=== PATIENT | male | born 1985 | race Caucasian/White ===

== ENCOUNTER 2016-05-16 12:20 | Emergency (ER) | payer OTHER ==
[2016-05-16] MEDS ORDERED: Adacel Vial IM ONE ×2 (12:54→13:04)
--- NOTE | 2016-05-16 12:59 | ERPHSYRPT ---
- History of Present Illness Time Seen by Provider: 05/16/16 12:47 Source: patient Patient Subjective Stated Complaint: bit by neighbors dog in the right lower leg /ankle Triage Nursing Assessment: pt walked into the ER. skin pink warm and dry. skin i broke on the right lower leg with scant amount of blood with 4 puncture wounds. Physician History: CC: dog bite Hx: 31 y/o patient of [place]. A new dog bit him on the right lower leg. Mostly scratch. It was pit bull. Dog has been quarantined at animal skilled nursing as vaccine unknown. Mild discomfort. Needs animal bite form for the skilled nursing. Unsure last tetanus vaccine. Occurred: just prior to arrival Lower Extremities Pain: leg: right Allergies/Adverse Reactions: azithromycin [From Zithromax Z-Cody] Allergy (Mild, Verified 12/21/14 08:39) Diarrhea metronidazole [From Flagyl] Allergy (Verified 12/21/14 08:39) Metronidazole HCl [From Flagyl] Allergy (Verified 12/21/14 08:39) Home Medications: No Home Meds 1 ea UD 12/21/14 [History] Hx Tetanus, Diphtheria Vaccination/Date Given: (unknown possibly 7 years ago) Hx Influenza Vaccination/Date Given: No Hx Pneumococcal Vaccination/Date Given: No Immunizations Up to Date: Yes - Review of Systems Constitutional: No Symptoms Neurological: No Focal Weakness, No Parasthesia - Past Medical History Pertinent Past Medical History: Yes Neurological History: No Pertinent History ENT History: No Pertinent History Cardiac History: Arrhythmia Respiratory History: Asthma, Pneumonia Endocrine Medical History: No Pertinent History Musculoskeletal History: Other GI Medical History: No Pertinent History History: No Pertinent History Psycho-Social History: No Pertinent History Male Reproductive Disorders: No Pertinent History Other Medical History: HEART "SKIPS A BEAT EVERY ONCE IN A WHILE" - Past Surgical History Past Surgical History: Yes Musculoskeletal: Orthopedic Surgery Other Surgical History: rt FOOT - Social History Smoking Status: Current every day smoker How long have you smoked: 15 Exposure to second hand smoke: Yes Drug Use: none Patient Lives Alone: No - Nursing Vital Signs Nursing Vital Signs: Initial Vital Signs Temperature 98.4 F Temperature Source Oral Pulse Rate 72 Respiratory Rate 18 Blood Pressure [Left Arm] 129/84 Pain Intensity 0 - Physical Exam General Appearance: alert Eyes, Ears, Nose, Throat Exam: moist mucous membranes Neck Exam: supple Cardiovascular/Respiratory Exam: regular rate/rhythm Neuro/Tendon Exam: normal sensation, normal motor functions Mental Status Exam: alert, oriented x 3, cooperative Skin Exam: warm, dry, other (scratches and abrasion right lower anterior leg. Pulses and ROM intact. No sign of deep injury. ) SpO2 Interpretation: normal SpO2: 97 Oxygen Delivery: Room Air - Course Nursing assessment & vital signs reviewed: Yes Ordered Tests: Active Orders 24 hr Category Date Time Status Wound Care STAT Care 05/16/16 12:54 Active - Progress Progress Note: 05/16/16 12:57 Discussed risk of infection and offered xray which he declines. Wound care, rx augmentin, dog bite form. Counseled pt/family regarding: diagnosis, need for follow-up - Departure Time of Disposition: 12:58 Departure Disposition: Home Clinical Impression: Dog bite of right lower leg Qualifiers: Encounter type: initial encounter Qualified Code(s): S81.851A - Open bite, right lower leg, initial encounter; W54.0XXA - Bitten by dog, initial encounter Condition: Stable Critical Care Time: No Referrals: [facility]OSP[facility] [Primary Care Provider] - Instructions: Animal Bites Additional Instructions: LACERATION CARE 1. Do not use peroxide, merthiolate, alcohol, or betadine. 2. Keep wound clean and dry. 3. Change dressing if it becomes wet or soiled. 4. If you must work, wear protective covering. 5. You may return to the emergency department or see your family physician for suture removal. 6. See your family physician or return to the emergency department for any of the following signs or symptoms: A. Redness B. Swelling C. Discolored drainage D. Red streaks E. Elevated temperature F. Other signs of infection Rx augmentin. Tylenol if needed for discomfort. Prescriptions: Amox Tr/Potass Clav. 875 mg [Augmentin 875-125 Tablet] 875 mg PO BID #14 tablet
[2016-05-16 13:41] VITALS: BP 132/88; PULSE 76; O2SAT 98
== END 2016-05-16 13:40 | disposition home or self-care (01) ==
LOC: ED 12:20
DX: S81.851A Open bite, right lower leg, initial encounter (principal); W54.0XXA Bitten by dog, initial encounter
CPT/HCPCS: 90471; 90715; 99283

== ENCOUNTER 2020-12-02 12:24 | Emergency (ER) | payer OTHER ==
[2020-12-02 12:36] VITALS: BP 131/77; O2SAT 96
--- NOTE | 2020-12-02 13:12 | ERPHSYRPT ---
- History of Present Illness Time Seen by Provider: 12/02/20 12:35 Source: patient Exam Limitations: no limitations Patient Subjective Stated Complaint: White coating to inner mouth /tongue since yesterday Triage Nursing Assessment: White, thrush like rash noted to inside of mouth/tongue, onset 12/01/2020. Multiple broken teeth. Pt reports pain in mouth 04/19. Denies difficulty swallowing/breathing. A & OX3, answers all questions apporopriately, ambulated to room 10. VSS. Respirations even and unlabored, heart rate within normal limits. Skin PWD. Pt laying in bed, states he is comfortable, call light within reach. Physician History: 35 years old with multiple broken teeth/caries/periodontal disease who uses lemon candy all the time and sometimes sleeps with candy in noticed some increasing white patches with pain of the buccal mucosa and some around the pharynx area. Does have chronic toothache which is not any worse than usual. No gingival swelling. Timing/Duration: gradual onset, days (3) Severity: moderate ENT Location: mouth, throat Prearrival Treatment: no prearrival treatment Associated Symptoms: sore throat, tooth pain, No difficulty swallowing Allergies/Adverse Reactions: azithromycin [From Zithromax Z-Cody] Allergy (Mild, Verified 12/02/20 12:36) Diarrhea metronidazole [From Flagyl] Allergy (Verified 12/02/20 12:36) Metronidazole HCl [From Flagyl] Allergy (Verified 12/02/20 12:36) Home Medications: No Home Meds [No Home Meds] 1 [facility] UD 12/21/14 [History] Hx Tetanus, Diphtheria Vaccination/Date Given: (unknown possibly 7 years ago) Hx Influenza Vaccination/Date Given: No Hx Pneumococcal Vaccination/Date Given: No Travel Risk - International Travel Have you traveled outside of the country in past 3 weeks: No - Coronavirus Screening Are you exhibiting any of the following symptoms?: No Close contact with a COVID-19 positive Pt in past 14-21 Days: No - Vaccine Status Have you recieved a Covid-19 vaccination: No - Review of Systems Constitutional: No Symptoms Ears, Nose, & Throat: No Symptoms, Mouth Pain, Mouth Swelling, Throat Pain, Throat Swelling Respiratory: No Symptoms Cardiac: No Symptoms Abdominal/Gastrointestinal: No Symptoms Genitourinary Symptoms: No Symptoms Musculoskeletal: No Symptoms Skin: No Symptoms Neurological: No Symptoms Psychological: No Symptoms Endocrine: No Symptoms - Past Medical History Pertinent Past Medical History: No Neurological History: No Pertinent History ENT History: No Pertinent History Cardiac History: Arrhythmia Respiratory History: Asthma, Pneumonia Endocrine Medical History: No Pertinent History Musculoskeletal History: Other GI Medical History: No Pertinent History History: No Pertinent History Psycho-Social History: No Pertinent History Male Reproductive Disorders: No Pertinent History Other Medical History: HEART "SKIPS A BEAT EVERY ONCE IN A WHILE" - Past Surgical History Past Surgical History: Yes Musculoskeletal: Orthopedic Surgery Other Surgical History: foot surgery - unsure which side. no metal in foot. - Social History Smoking Status: Current every day smoker How long have you smoked: 15 Exposure to second hand smoke: No Drug Use: none Patient Lives Alone: Yes - Nursing Vital Signs Nursing Vital Signs: Initial Vital Signs Temperature 97.7 F 12/02/20 12:29 Pulse Rate 110 H 12/02/20 12:29 Respiratory Rate 16 12/02/20 12:29 Blood Pressure 131/77 12/02/20 12:29 O2 Sat by Pulse Oximetry 96 12/02/20 12:29 Pain Scale Pain Intensity 3 - Physical Exam General Appearance: no apparent distress, alert Eye Exam: bilateral eye: normal inspection, PERRL, EOMI Ear Exam: bilateral ear: auricle normal, canal normal, TM normal Nasal Exam: normal inspection Throat Exam: dental tenderness, moist mucus membranes, pharynx swelling, pharynx tenderness, tongue swollen (Multiple white patches on the buccal mucosa, tongue and and pharyngeal/tonsillar pillars. Easily scrappable the bleeding underneath. Mild tender to touch. Multiple dental caries with broken teeth and periodontal disease widespread) Neck Exam: normal inspection, supple, full range of motion Cardiovascular/Respiratory Exam: normal breath sounds, regular rate/rhythm Neurologic Exam: alert, oriented x 3, cooperative Skin Exam: normal color SpO2: 96 O2 Delivery: Room Air - Progress Progress: unchanged Progress Note: 12/02/20 13:12 Has oropharyngeal candidiasis. Moderate disease. We will try fluconazole. Outpatient follow-up with primary care and dental surgery recommended. Counseled pt/family regarding: diagnosis, need for follow-up - Departure Departure Disposition: Home Clinical Impression: Oral pharyngeal candidiasis Condition: Stable Critical Care Time: No Referrals: DOCTOR,NO FAMILY [Primary Care Provider] - DUGLAS MONTGOMERY MD [ACTIVE STAFF] - Follow Up with PCP/3 days GLYNN ESPAÑA DDS [NON-STAFF PHY W/O PRIVILEGES] - (Call Friday for reevaluation) Instructions: Thrush Additional Instructions: Follow-up with primary care and general surgery for reevaluation. Return to ER for worsening swelling/thrush/pain or difficulty swallowing etc. Prescriptions: Fluconazole 100 mg [Diflucan 100 MG] 100 mg PO DAILY 7 Days #8 tablet
[2020-12-02 13:37] VITALS: PULSE 85
== END 2020-12-02 13:30 | disposition home or self-care (01) ==
LOC: ED 12:24
DX: B37.0 Candidal stomatitis (principal)
CPT/HCPCS: 99283

== ENCOUNTER 2021-05-26 07:20 | Emergency (ER) | payer OTHER ==
[2021-05-26 07:33] VITALS: BP 110/77
--- NOTE | 2021-05-26 07:42 | ERPHSYRPT ---
- History of Present Illness Time Seen by Provider: 05/26/21 07:34 Source: patient Exam Limitations: no limitations Patient Subjective Stated Complaint: pt reports dental pain, sore throat and what he believes is oral thrush. pt reports recent visit for similar issue. pt r eports area of pain is the upper left incisor today, reports pain radiates up his face. Triage Nursing Assessment: pt is aox3, pupils perrl, afebrile, resps easy and non labored, radial pulses strong equal, cap refill < 3 seconds, pt skin pink warm dry. pt with extensive dental caries and decay, and broken teeth. pt throat appears reddened. no facial swelling appreciated at this time. Physician History: Patient is a 36-year-old white male who presents with a complaint of what he thinks is a recurrence of thrush. He also complains of dental pain in the left maxillary canine. He does realize that he has severe carious disease which involve most of his teeth. He is unable to obtain dental care. He was treated for thrush approximately 2 months ago. He denies any fever chills or sweats. Timing/Duration: gradual onset Severity: severe ENT Location: mouth (Multiple carious teeth swelling of the gums near the left maxillary canine typical appearing monilial lesions in the throat.), throat, dental Prearrival Treatment: no prearrival treatment Modifying Factors: Improves With: nothing Associated Symptoms: ear pain (L), facial pain/swelling, jaw pain, sore throat, tooth pain, difficulty swallowing Allergies/Adverse Reactions: azithromycin [From Zithromax Z-Cody] Allergy (Mild, Verified 05/26/21 07:33) Diarrhea metronidazole [From Flagyl] Allergy (Verified 05/26/21 07:33) Metronidazole HCl [From Flagyl] Allergy (Verified 05/26/21 07:33) Home Medications: No Home Meds [No Home Meds] 1 valente TRUDI 12/21/14 [History] Hx Tetanus, Diphtheria Vaccination/Date Given: Yes Hx Influenza Vaccination/Date Given: No Hx Pneumococcal Vaccination/Date Given: No Immunizations Up to Date: Yes Travel Risk - International Travel Have you traveled outside of the country in past 3 weeks: No - Coronavirus Screening Are you exhibiting any of the following symptoms?: No Close contact with a COVID-19 positive Pt in past 14-21 Days: No - Vaccine Status Have you recieved a Covid-19 vaccination: No - Review of Systems Constitutional: No Fever, No Chills Eyes: No Symptoms Ears, Nose, & Throat: Mouth Pain, Loose Teeth, Throat Pain Respiratory: No Cough, No Dyspnea Cardiac: No Chest Pain, No Edema, No Syncope Abdominal/Gastrointestinal: No Abdominal Pain, No Nausea, No Vomiting, No Diarrhea Genitourinary Symptoms: No Dysuria Musculoskeletal: No Back Pain, No Neck Pain Skin: No Rash Neurological: No Dizziness, No Focal Weakness, No Sensory Changes Psychological: No Symptoms Endocrine: No Symptoms All Other Systems: Reviewed and Negative - Past Medical History Pertinent Past Medical History: No Neurological History: No Pertinent History ENT History: No Pertinent History Cardiac History: Arrhythmia Respiratory History: Asthma, Pneumonia Endocrine Medical History: No Pertinent History Musculoskeletal History: Other GI Medical History: No Pertinent History History: No Pertinent History Psycho-Social History: No Pertinent History Male Reproductive Disorders: No Pertinent History Other Medical History: HEART "SKIPS A BEAT EVERY ONCE IN A WHILE" - Past Surgical History Past Surgical History: Yes Musculoskeletal: Orthopedic Surgery Other Surgical History: foot surgery - unsure which side. no metal in foot. - Social History Smoking Status: Current every day smoker How long have you smoked: 1 Exposure to second hand smoke: No Drug Use: marijuana Patient Lives Alone: No - Nursing Vital Signs Nursing Vital Signs: Initial Vital Signs Temperature 98.6 F 05/26/21 07:23 Pulse Rate 89 05/26/21 07:23 Respiratory Rate 20 05/26/21 07:23 Blood Pressure 110/77 05/26/21 07:23 O2 Sat by Pulse Oximetry 96 05/26/21 07:23 Pain Scale Pain Intensity 6 - Physical Exam General Appearance: no apparent distress, alert Eye Exam: bilateral eye: PERRL, EOMI Ear Exam: bilateral ear: auricle normal, canal normal, TM normal Nasal Exam: normal inspection Throat Exam: dental tenderness, maxillary swelling, moist mucus membranes, tonsillar exudate, uvula swelling Neck Exam: supple Cardiovascular/Respiratory Exam: normal breath sounds, regular rate/rhythm Abdominal Exam: non-tender, soft Neurologic Exam: alert, oriented x 3, sensation nml, No motor deficits Skin Exam: normal color, warm, dry SpO2 Interpretation: normal SpO2: 96 O2 Delivery: Room Air - Course Nursing assessment & vital signs reviewed: Yes - Progress Progress: unchanged - Departure Departure Disposition: Home Clinical Impression: Thrush, Dental abscess Condition: Stable Critical Care Time: No Referrals: DOCTOR,NO FAMILY [Primary Care Provider] - Follow up/PCP as directed Instructions: Sore Throat, Adult (DC), Thrush (DC) Prescriptions: clindamycin HCL [Cleocin HCl] 300 mg PO TID 7 Days #21 cap Fluconazole [Diflucan ] 150 mg PO DAILY 5 Days #5 tablet
[2021-05-26 07:44] VITALS: PULSE 76; O2SAT 98
== END 2021-05-26 07:49 | disposition home or self-care (01) ==
LOC: ED 07:20
DX: B37.0 Candidal stomatitis (principal); K04.7 Periapical abscess without sinus; H92.02 Otalgia, left ear; R68.84 Jaw pain; J02.9 Acute pharyngitis, unspecified; R13.10 Dysphagia, unspecified; Z72.0 Tobacco use
CPT/HCPCS: 99283

== ENCOUNTER 2021-07-10 00:29 | Emergency (ER) | payer OTHER ==
[2021-07-10] MEDS ORDERED: Augmentin 875-125 Tablet PO ONE (00:57)
[2021-07-10] MEDS ORDERED: TORAdol 30 mg Injection IM ONE (00:57)
[2021-07-10] MEDS ORDERED: Augmentin 875-125 Tablet ONE (01:00)
[2021-07-10] MEDS ORDERED: TORAdol 30 mg Injection ONE (01:00)
--- NOTE | 2021-07-10 01:02 | ERPHSYRPT ---
- History of Present Illness Time Seen by Provider: 07/10/21 00:47 Source: patient Exam Limitations: no limitations Patient Subjective Stated Complaint: nasal congestion, sore throat, ear pain Triage Nursing Assessment: pt c/o nasal congestion, sore throat and bilat ear pain x5 days. Rt ear pink, throat pink, lungs clear throughout. Pt states, "I have bad teeth too". Physician History: 36-year-old male presented to the ER with 2 weeks history of sinus congestion with progressive worsening and now involving left ear and throat. Also having wet to dry cough without wheezing or shortness of breath. Timing/Duration: week(s) (2), gradual onset, worse Cough Quality/Degree: moderate, dry cough, productive cough Modifying Factors: Worsens With: coughing Associated Symptoms: cough, earache, facial pain, headache, nasal congestion, nasal drainage, sore throat Allergies/Adverse Reactions: azithromycin [From Zithromax Z-Cody] Allergy (Mild, Verified 07/10/21 00:44) Diarrhea metronidazole [From Flagyl] Allergy (Verified 07/10/21 00:44) Metronidazole HCl [From Flagyl] Allergy (Verified 07/10/21 00:44) Hx Tetanus, Diphtheria Vaccination/Date Given: No Hx Influenza Vaccination/Date Given: No Hx Pneumococcal Vaccination/Date Given: No Immunizations Up to Date: No Travel Risk - International Travel Have you traveled outside of the country in past 3 weeks: No - Coronavirus Screening Are you exhibiting any of the following symptoms?: No Close contact with a COVID-19 positive Pt in past 14-21 Days: No - Vaccine Status Have you recieved a Covid-19 vaccination: No - Review of Systems Constitutional: No Symptoms Eyes: No Symptoms Ears, Nose, & Throat: Ear Pain, Sinus Drainage, Throat Swelling Respiratory: Cough Cardiac: No Symptoms Abdominal/Gastrointestinal: No Symptoms Musculoskeletal: No Symptoms Skin: No Symptoms Neurological: No Symptoms Endocrine: No Symptoms Hematologic/Lymphatic: No Symptoms Immunological/Allergic: No Symptoms - Past Medical History Pertinent Past Medical History: Yes Neurological History: No Pertinent History ENT History: No Pertinent History Cardiac History: Arrhythmia Respiratory History: Asthma, Bronchitis, Pneumonia Endocrine Medical History: No Pertinent History Musculoskeletal History: No Pertinent History GI Medical History: No Pertinent History History: No Pertinent History Psycho-Social History: No Pertinent History Male Reproductive Disorders: No Pertinent History Other Medical History: HEART "SKIPS A BEAT EVERY ONCE IN A WHILE" - Past Surgical History Past Surgical History: Yes Musculoskeletal: Orthopedic Surgery Other Surgical History: foot surgery - unsure which side. no metal in foot. - Social History Smoking Status: Current every day smoker How long have you smoked: 20 yrs Exposure to second hand smoke: Yes Drug Use: marijuana Patient Lives Alone: Yes - Nursing Vital Signs Nursing Vital Signs: Initial Vital Signs Temperature 97.5 F 07/10/21 00:37 Pulse Rate 76 07/10/21 00:37 Respiratory Rate 18 07/10/21 00:37 Blood Pressure 125/81 07/10/21 00:37 O2 Sat by Pulse Oximetry 98 07/10/21 00:37 Pain Scale Pain Intensity 4 - Physical Exam General Appearance: no apparent distress, alert Eye Exam: PERRL/EOMI Ears, Nose, Throat Exam: moist mucous membranes, pharyngeal erythema Neck Exam: normal inspection, non-tender, supple, full range of motion Respiratory Exam: normal breath sounds, lungs clear Cardiovascular Exam: regular rate/rhythm, normal heart sounds Back Exam: normal inspection, normal range of motion Extremity Exam: normal inspection Neurologic Exam: alert, oriented x 3, cooperative, 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 Started on Augmentin. Outpatient follow-up recommended. Blood Culture(s) Obtained: No Antibiotics given: Yes Counseled pt/family regarding: diagnosis, need for follow-up - Departure Departure Disposition: Home Clinical Impression: Acute bacterial sinusitis Condition: Stable Critical Care Time: No Referrals: DOCTOR,NO FAMILY [Primary Care Provider] - Follow up/PCP as directed SEFERINO COATS DO [ACTIVE STAFF] - Follow Up with PCP/3 days Instructions: Sinusitis, Adult (DC) Additional Instructions: Take Tylenol/ibuprofen as needed. Drink plenty of fluids. Do not smoke. Follow-up with primary care for reevaluation. Return to ER for any worsening. Prescriptions: Amox Tr/Potass Clav. 875 mg [Augmentin 875-125 Tablet] 875 mg PO BID #14 tablet
[2021-07-10 01:39] VITALS: BP 119/76; PULSE 73; O2SAT 97
== END 2021-07-10 01:35 | disposition home or self-care (01) ==
LOC: ED 00:29
DX: J01.00 Acute maxillary sinusitis, unspecified (principal); R09.81 Nasal congestion; H92.02 Otalgia, left ear; J02.9 Acute pharyngitis, unspecified; R05.9 Cough, unspecified; R51.9 Headache, unspecified; Z72.0 Tobacco use
CPT/HCPCS: 96372; 99283; J1885; A9270-GY

== ENCOUNTER 2021-08-09 03:23 | Emergency (ER) | payer OTHER ==
--- NOTE | 2021-08-09 03:31 | ERPHSYRPT ---
- History of Present Illness Time Seen by Provider: 08/09/21 03:28 Source: patient Exam Limitations: no limitations Physician History: This a 36-year-old white male patient who presents to the emergency department with tooth ache. Left upper and lower worse than the right side. Patient has generalized poor dentition patient has a history of asthma, bronchitis. Patient's primary care physician is Dr. Trujillo. Patient is a current daily smoker of cigarettes. Patient is waiting for his insurance to be cleared to undergo the pulling of all his teeth. He has been using Tylenol and ibuprofen without any benefit. Severity: mild (To moderate) Prearrival Treatment: over the counter meds Associated Symptoms: tooth pain Allergies/Adverse Reactions: azithromycin [From Zithromax Z-Cody] Allergy (Mild, Verified 07/10/21 00:44) Diarrhea metronidazole [From Flagyl] Allergy (Verified 07/10/21 00:44) Metronidazole HCl [From Flagyl] Allergy (Verified 07/10/21 00:44) Hx Tetanus, Diphtheria Vaccination/Date Given: No Hx Influenza Vaccination/Date Given: No Hx Pneumococcal Vaccination/Date Given: No Travel Risk - International Travel Have you traveled outside of the country in past 3 weeks: No - Coronavirus Screening Are you exhibiting any of the following symptoms?: No Close contact with a COVID-19 positive Pt in past 14-21 Days: No - Vaccine Status Have you recieved a Covid-19 vaccination: No - Review of Systems Constitutional: No Symptoms Eyes: No Symptoms Ears, Nose, & Throat: Other Respiratory: No Symptoms (Toothache) Cardiac: No Symptoms Abdominal/Gastrointestinal: No Symptoms Genitourinary Symptoms: No Symptoms Musculoskeletal: No Symptoms Skin: No Symptoms Neurological: No Symptoms Psychological: No Symptoms Endocrine: No Symptoms Hematologic/Lymphatic: No Symptoms Immunological/Allergic: No Symptoms All Other Systems: Reviewed and Negative - Past Medical History Pertinent Past Medical History: Yes Neurological History: No Pertinent History ENT History: No Pertinent History Cardiac History: Arrhythmia Respiratory History: Asthma, Bronchitis, Pneumonia Endocrine Medical History: No Pertinent History Musculoskeletal History: No Pertinent History GI Medical History: No Pertinent History History: No Pertinent History Psycho-Social History: No Pertinent History Male Reproductive Disorders: No Pertinent History Other Medical History: HEART "SKIPS A BEAT EVERY ONCE IN A WHILE" - Past Surgical History Past Surgical History: Yes Musculoskeletal: Orthopedic Surgery Other Surgical History: foot surgery - unsure which side. no metal in foot. - Social History Smoking Status: Current every day smoker How long have you smoked: 20 yrs Exposure to second hand smoke: Yes Drug Use: marijuana Patient Lives Alone: Yes - Physical Exam General Appearance: no apparent distress, alert, anxiety Eye Exam: bilateral eye: normal inspection, PERRL, EOMI Ear Exam: bilateral ear: auricle normal Nasal Exam: normal inspection Throat Exam: dental tenderness (Generalized poor dentition with multiple fractured teeth and dental caries) Neck Exam: normal inspection, non-tender, supple, full range of motion, trachea midline Cardiovascular/Respiratory Exam: chest non-tender, no respiratory distress Abdominal Exam: non-tender Neurologic Exam: alert, oriented x 3, cooperative, block 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 Follow-up with a dentist for definitive care. Prescriptions: Amoxicillin 500 mg Cap [Amoxil 500 mg] 500 mg PO TID #30 cap Clindamycin HCl 150 mg [Cleocin 150 mg Capsule] 2 cap PO QID #40 cap
[2021-08-09] MEDS ORDERED: NORCO 5/325 MG PO ONE (03:37)
[2021-08-09] MEDS ORDERED: AMOXIL 500 MG PO ONE (03:38)
[2021-08-09] MEDS ORDERED: CLEOCIN 150 MG CAPSULE PO ONE (03:38)
[2021-08-09] MEDS ORDERED: CLEOCIN 150 MG CAPSULE ONE (03:42)
[2021-08-09] MEDS ORDERED: NORCO 5/325 MG ONE (03:42)
[2021-08-09 03:43] VITALS: BP 140/106; PULSE 75; O2SAT 99
[2021-08-09] MEDS ORDERED: AMOXIL 500 MG ONE (03:43)
== END 2021-08-09 03:56 | disposition home or self-care (01) ==
LOC: ED 03:23
DX: K02.9 Dental caries, unspecified (principal); Z72.0 Tobacco use; Z28.310 Unvaccinated for COVID-19
CPT/HCPCS: 99282; A9270-GY

== ENCOUNTER 2021-08-30 04:48 | Emergency (ER) | payer OTHER ==
[2021-08-30 05:02] VITALS: BP 139/82; PULSE 75; O2SAT 98
[2021-08-30] MEDS ORDERED: PERCOCET TABLET 5/325MG PO STA (05:09)
[2021-08-30] MEDS ORDERED: PERCOCET TABLET 5/325MG ONE (05:12)
--- NOTE | 2021-08-30 05:15 | ERPHSYRPT ---
- History of Present Illness Time Seen by Provider: 08/30/21 05:05 Source: patient Exam Limitations: no limitations Patient Subjective Stated Complaint: pt states he has bad teeth and is having pain in his rt upper jaw. started having problems approx 3 mos ago Triage Nursing Assessment: pt alert and oriented, answers questions approp. pt ambulatory with steady gait noted. respirations nonlabored. skin warm and dry. poor dentition noted. Physician History: This a 36-year-old white male patient who has chronic poor dentition and chronic recurring dental pain and was seen by his dentist a few days ago because of dent al pain and dental caries. They placed him on amoxicillin and gave him chlorhexidine solution for oral rinse. He was told to take Tylenol and ibuprofen. That does not helping his pain as much as he would like. Patient drove himself into the emergency room this morning. The next appointment to see a dentist is September 10, 2021. Severity: moderate ENT Location: dental Prearrival Treatment: over the counter meds, prescription meds Associated Symptoms: tooth pain (Right upper molars) Allergies/Adverse Reactions: azithromycin [From Zithromax Z-Cody] Allergy (Mild, Verified 08/09/21 03:43) Diarrhea metronidazole [From Flagyl] Allergy (Unknown, Verified 08/30/21 05:02) Metronidazole HCl [From Flagyl] Allergy (Unknown, Verified 08/30/21 05:02) Home Medications: Acetaminophen 325 mg [Tylenol 325 mg] 650 mg PO Q6H PRN PRN 08/30/21 [History] Chlorhexidine Gluconate [HIBICLENS 4% Scrub] 15 ml TOP BID 08/30/21 [History] Ibuprofen 200 mg [Motrin 200 mg] 800 mg PO Q6H PRN PRN 08/30/21 [History] Hx Tetanus, Diphtheria Vaccination/Date Given: No Hx Influenza Vaccination/Date Given: No Hx Pneumococcal Vaccination/Date Given: No Immunizations Up to Date: No Travel Risk - International Travel Have you traveled outside of the country in past 3 weeks: No - Coronavirus Screening Are you exhibiting any of the following symptoms?: No Close contact with a COVID-19 positive Pt in past 14-21 Days: No - Vaccine Status Have you recieved a Covid-19 vaccination: No - Review of Systems Constitutional: No Symptoms Eyes: No Symptoms Ears, Nose, & Throat: Other (Dental pain) Respiratory: No Symptoms Cardiac: No Symptoms Abdominal/Gastrointestinal: No Symptoms Genitourinary Symptoms: No Symptoms Musculoskeletal: No Symptoms Skin: No Symptoms Neurological: No Symptoms Psychological: No Symptoms Endocrine: No Symptoms Hematologic/Lymphatic: No Symptoms Immunological/Allergic: No Symptoms All Other Systems: Reviewed and Negative - Past Medical History Pertinent Past Medical History: Yes Neurological History: No Pertinent History ENT History: No Pertinent History Cardiac History: Arrhythmia Respiratory History: Asthma, Bronchitis, Pneumonia Endocrine Medical History: No Pertinent History Musculoskeletal History: No Pertinent History GI Medical History: No Pertinent History History: No Pertinent History Psycho-Social History: No Pertinent History Male Reproductive Disorders: No Pertinent History Other Medical History: HEART "SKIPS A BEAT EVERY ONCE IN A WHILE" - Past Surgical History Past Surgical History: Yes Musculoskeletal: Orthopedic Surgery Other Surgical History: foot surgery - unsure which side. no metal in foot. - Social History Smoking Status: Current every day smoker How long have you smoked: 20 yrs Exposure to second hand smoke: Yes Drug Use: marijuana Patient Lives Alone: Yes - Nursing Vital Signs Nursing Vital Signs: Initial Vital Signs Temperature 97.8 F 08/30/21 04:53 Pulse Rate 75 08/30/21 04:53 Respiratory Rate 16 08/30/21 04:53 Blood Pressure 139/82 08/30/21 04:53 O2 Sat by Pulse Oximetry 98 08/30/21 04:53 Pain Scale Pain Intensity 10 - Physical Exam General Appearance: no apparent distress, alert, anxiety Eye Exam: bilateral eye: normal inspection, PERRL, EOMI Ear Exam: bilateral ear: auricle normal Nasal Exam: normal inspection Throat Exam: dental tenderness (Generalized dental caries. Point of maximal tenderness is right upper molars) Neck Exam: normal inspection, non-tender, supple, full range of motion, trachea midline Cardiovascular/Respiratory Exam: chest non-tender, no respiratory distress Abdominal Exam: non-tender Neurologic Exam: alert, oriented x 3, cooperative, land examiner II-XII nml as tested, normal mood/affect, nml cerebellar function, nml station & gait, sensation nml Skin Exam: normal color, warm, dry SpO2 Interpretation: normal SpO2: 98 O2 Delivery: Room Air - Course Nursing assessment & vital signs reviewed: Yes Ordered Tests: Medication Summary Generic Name Dose Route Start Last Admin Trade Name Jeferson PRN Reason Stop Dose Admin Oxycodone/Acetaminophen 2 tab 08/30/21 05:09 Oxycodone Hcl/Apap 5 Mg/325 Mg Tablet PO 08/30/21 05:10 SENT HOME W/ PATIENT STA - Progress Progress: unchanged Counseled pt/family regarding: diagnosis, need for follow-up - Departure Departure Disposition: Home Clinical Impression: Pain due to dental caries Condition: Stable Critical Care Time: No Referrals: KENIA ROBERTO [Primary Care Provider] - Follow up/PCP as directed Additional Instructions: Continue antibiotics as prescribed. Follow-up with your dentist and primary care provider today for further evaluation and management of your pain as an outpatient.
== END 2021-08-30 05:25 | disposition home or self-care (01) ==
LOC: ED 04:48
DX: K08.89 Other specified disorders of teeth and supporting structures (principal); K02.9 Dental caries, unspecified; Z72.0 Tobacco use; Z79.899 Other long term (current) drug therapy; Z28.310 Unvaccinated for COVID-19
CPT/HCPCS: 99281; A9270-GY

== ENCOUNTER 2021-09-04 09:26 | Emergency (ER) | payer OTHER ==
[2021-09-04] MEDS ORDERED: BABY ASPIRIN 81 MG CHEW PO ONE (09:38)
--- NOTE | 2021-09-04 09:47 | ERPHSYRPT ---
- History of Present Illness Time Seen by Provider: 09/04/21 09:30 Historian: patient Exam Limitations: no limitations Patient Subjective Stated Complaint: C/O chest pain to left side of chest that started sometime last night when patient was at rest. No SOB. No N/V, dizziness. Denies pain radiation anywhere. Triage Nursing Assessment: Ambulated back to ED without difficulties. No SOB noted. Skin C/D/I. SAENZ WNL. No cough noted but patient states that he has a cough related to years of smoking that is not new. Physician History: Patient is a 36-year-old male with a [id number] smoking presents to our ED with complaints of chest pain. Patient has been experiencing intermittent left- sided chest pain for several months. Patient's current pain started last night while patient was resting. Pain started approximately 10:30 PM. Pain has been ongoing. Patient states that he experiences a slight radiation to his left shoulder. No associated nausea vomiting or diaphoresis. No trauma. No fever. Symptoms are mild to moderate in intensity. No specific worsening improving factors. Patient has not had a cardiac work-up for this pain as stated he has been experiencing this pain intermittently for the past several months. Patient states otherwise healthy. He voices no other complaints or concerns at this time. Timing/Duration: yesterday Activities at Onset: none Quality: aching Location: other (Left chest) Chest Pain Radiation: arm Severity of Pain-Max: moderate Severity of Pain-Current: mild Modifying Factors: Improves With: nothing Associated Symptoms: denies symptoms, No nausea, No vomiting, No palpitations, No abdominal pain, No shortness of breath, No hurts to breathe, No diaphoresis, No fatigue, No weakness, No syncope, No headache, No dizziness Prior Chest Pain/Cardiac Workup: no prior chest pain Nitro Today/Relief: no nitro taken today Aspirin Treatment Today: no aspirin today Allergies/Adverse Reactions: azithromycin [From Zithromax Z-Cody] Allergy (Mild, Verified 09/04/21 09:28) Diarrhea metronidazole [From Flagyl] Allergy (Unknown, Verified 09/04/21 09:28) Metronidazole HCl [From Flagyl] Allergy (Unknown, Verified 09/04/21 09:28) Home Medications: Acetaminophen 325 mg [Tylenol 325 mg] 650 mg PO Q6H PRN PRN 08/30/21 [History] Ibuprofen 200 mg [Motrin 200 mg] 800 mg PO Q6H PRN PRN 08/30/21 [History] Hx Tetanus, Diphtheria Vaccination/Date Given: Yes Hx Influenza Vaccination/Date Given: No Hx Pneumococcal Vaccination/Date Given: No Immunizations Up to Date: Yes Travel Risk - International Travel Have you traveled outside of the country in past 3 weeks: No - Coronavirus Screening Are you exhibiting any of the following symptoms?: No Close contact with a COVID-19 positive Pt in past 14-21 Days: No - Vaccine Status Have you recieved a Covid-19 vaccination: No - Review of Systems Constitutional: No Symptoms, No Fever, No Chills Eyes: No Symptoms Ears, Nose, & Throat: No Symptoms Respiratory: No Symptoms, No Cough, No Dyspnea Cardiac: No Symptoms, No Chest Pain, No Edema, No Syncope Abdominal/Gastrointestinal: No Symptoms, No Abdominal Pain, No Nausea, No Vo miting, No Diarrhea Genitourinary Symptoms: No Symptoms, No Dysuria Musculoskeletal: No Symptoms, No Back Pain, No Neck Pain Skin: No Symptoms, No Rash Neurological: No Symptoms, No Dizziness, No Focal Weakness, No Sensory Changes Psychological: No Symptoms Endocrine: No Symptoms Hematologic/Lymphatic: No Symptoms Immunological/Allergic: No Symptoms All Other Systems: Reviewed and Negative - Past Medical History Pertinent Past Medical History: Yes Neurological History: No Pertinent History ENT History: No Pertinent History Cardiac History: Arrhythmia Respiratory History: Asthma, Bronchitis, Pneumonia Endocrine Medical History: No Pertinent History Musculoskeletal History: No Pertinent History GI Medical History: No Pertinent History History: No Pertinent History Psycho-Social History: No Pertinent History Male Reproductive Disorders: No Pertinent History Other Medical History: HEART "SKIPS A BEAT EVERY ONCE IN A WHILE" - Past Surgical History Past Surgical History: Yes Musculoskeletal: Orthopedic Surgery Other Surgical History: foot surgery - Social History Smoking Status: Current every day smoker How long have you smoked: 20 yrs Exposure to second hand smoke: Yes Drug Use: marijuana Patient Lives Alone: Yes - Nursing Vital Signs Nursing Vital Signs: Initial Vital Signs Temperature 98.2 F 09/04/21 09:28 Pulse Rate 84 09/04/21 09:28 Respiratory Rate 20 09/04/21 09:28 Blood Pressure 136/87 09/04/21 09:28 O2 Sat by Pulse Oximetry 99 09/04/21 09:28 Pain Scale Pain Intensity 5 - Physical Exam General Appearance: no apparent distress, alert Eye Exam: PERRL/EOMI, eyes nml inspection Ears, Nose, Throat Exam: normal ENT inspection, TMs normal, pharynx normal, moist mucous membranes Neck Exam: normal inspection, non-tender, supple, full range of motion Respiratory Exam: normal breath sounds, lungs clear, airway intact, No chest ten derness, No respiratory distress Cardiovascular Exam: regular rate/rhythm, normal heart sounds, normal peripheral pulses Gastrointestinal/Abdomen Exam: soft, normal bowel sounds, No tenderness, No mass Back Exam: normal inspection, normal range of motion, No CVA tenderness, No vertebral tenderness Extremity Exam: normal inspection, normal range of motion Neurologic Exam: alert, oriented x 3, cooperative, campus administrator II-XII nml as tested, normal mood/affect, sensation nml, No motor deficits Skin Exam: normal color, warm, dry Lymphatic Exam: No adenopathy SpO2 Interpretation: normal SpO2: 99 O2 Delivery: Room Air - Course Nursing assessment & vital signs reviewed: Yes EKG Interpreted by Me: RATE (74), Sinus Rhythm, NORMAL AXIS, NORMAL INTERVALS - Radiology Exams Chest X-ray Interpretation: Teleradiologist Report (No acute cardiopulmonary disease) Ordered Tests: Active Orders 24 hr Category Date Time Status Access Services Librarian STAT Care 09/04/21 09:39 Active Clean Catch Urine Specimen STAT Care 09/04/21 09:38 Active EKG-ER Only STAT Care 09/04/21 09:38 Active IV Insertion STAT Care 09/04/21 09:38 Active Pulse Oximetry (ED) STAT Care 09/04/21 09:38 Active CHEST 1 VIEW (PORTABLE) Stat Exams 09/04/21 09:39 Completed CBC W DIFF Stat Lab 09/04/21 09:49 Completed CMP Stat Lab 09/04/21 09:49 Completed D-DIMER QUANTITATIVE Stat Lab 09/04/21 09:49 Completed NT PRO BNP Stat Lab 09/04/21 09:49 Completed TROPONIN Q3H Lab 09/04/21 09:49 Completed TROPONIN Q3H Lab 09/04/21 11:02 Completed TROPONIN Q3H Lab 09/04/21 15:45 Ordered TROPONIN Q3H Lab 09/04/21 18:45 Ordered TROPONIN Q3H Lab 09/04/21 21:45 Ordered UA W/RFX CULTURE Stat Lab 09/04/21 10:21 Completed Urine Triage Profile Stat Lab 09/04/21 10:21 Completed Medication Summary Discontinued Medications Generic Name Dose Route Start Last Admin Trade Name Jeferson PRN Reason Stop Dose Admin Aspirin 324 mg 09/04/21 09:38 09/04/21 09:51 Aspirin 81 Mg Tab.Chew PO 09/04/21 09:39 324 mg STAT ONE Administration Lab/Rad Data: Laboratory Result Diagrams 09/04/21 09:49 09/04/21 09:49 Laboratory Results 09/04/21 09/04/21 09/04/21 Range/Units 11:02 10:21 10:21 WBC (4.0-10.5) x10^3/uL RBC (4.1-5.6) x10^6/uL Hgb (12.5-18.0) g/dL Hct (42-50) % MCV (78-100) fL MCH (26-32) pg MCHC (32-36) g/dL RDW (11.5-14.0) % Plt Count (150-450) x10^3/uL MPV (7.5-11.0) fL Gran % (36.0-66.0) % Immature Gran % (Auto) (0.00-0.4) % Nucleat RBC Rel Count (0.00-0.1) % Eos # (Auto) (0-0.5) x10^3/uL Immature Gran # (Auto) (0.00-0.03) x10^3u/L Absolute Lymphs (auto) (1.0-4.6) x10^3/uL Absolute Monos (auto) (0.0-1.3) x10^3/uL Absolute Nucleated RBC (0.00-0.01) x10^3u/L Lymphocytes % (24.0-44.0) % Monocytes % (0.0-12.0) % Eosinophils % (0.00-5.0) % Basophils % (0.0-0.4) % Absolute Granulocytes (1.4-6.9) x10^3/uL Basophils # (0-0.4) x10^3/uL D-Dimer (0.0-0.50) mg/L Sodium (137-145) mmol/L Potassium (3.5-5.1) mmol/L Chloride (98-107) mmol/L Carbon Dioxide (22-30) mmol/L Anion Gap (5-15) MEQ/L BUN (9-20) mg/dL Creatinine (0.66-1.25) mg/dL Estimated GFR ML/MIN Glucose (74-106) mg/dL Calcium (8.4-10.2) mg/dL Total Bilirubin (0.2-1.3) mg/dL AST (17-59) U/L ALT (0-50) U/L Alkaline Phosphatase (38-126) U/L Troponin I < 0.012 (0.000-0.034) ng/mL NT-Pro-B Natriuret Pep (0-450) pg/mL Serum Total Protein (6.3-8.2) g/dL Albumin (3.5-5.0) g/dL Urinalys Dipstick Clnc MAIN LAB Urine Color YELLOW (YELLOW) Urine Appearance CLEAR (CLEAR) Urine pH 6.0 (5-6) Ur Specific Hamill 1.025 (1.005-1.025) POC Urine Protein Conf NEGATIVE (Negative) Urine Ketones NEGATIVE (NEGATIVE) Urine Nitrite NEGATIVE (NEGATIVE) Urine Bilirubin NEGATIVE (NEGATIVE) Urine Urobilinogen 0.2 (0-1) mg/dL Urine Leukocytes NEGATIVE (NEGATIVE) Urine WBC (Auto) 0-2 (0-5) /HPF Urine RBC (Auto) NONE (0-2) /HPF U Epithel Cells (Auto) OCCASIONAL (FEW) /HPF Urine Bacteria (Auto) NONE SEEN (NEGATIVE) /HPF Urine RBC NEGATIVE (0-5) Niles/ul Calcium Oxalate Crystal 11-25 (NEGATIVE) /HPF Urine Mucus (Auto) SLIGHT (NEGATIVE) /HPF Ur Culture Indicated? NO Urine Glucose NEGATIVE (NEGATIVE) mg/dL Urine Opiates Level POSITIVE (NEGATIVE) Ur Methadone NEGATIVE (NEGATIVE) Urine Barbiturates NEGATIVE (NEGATIVE) Ur Phencyclidine (PCP) NEGATIVE (NEGATIVE) Urine Amphetamine NEGATIVE (NEGATIVE) U Benzodiazepine Level NEGATIVE (NEGATIVE) Urine Cocaine NEGATIVE (NEGATIVE) Urine Marijuana (THC) POSITIVE (NEGATIVE) 09/04/21 09/04/21 09/04/21 Range/Units 09:49 09:49 09:49 WBC (4.0-10.5) x10^3/uL RBC (4.1-5.6) x10^6/uL Hgb (12.5-18.0) g/dL Hct (42-50) % MCV (78-100) fL MCH (26-32) pg MCHC (32-36) g/dL RDW (11.5-14.0) % Plt Count (150-450) x10^3/uL MPV (7.5-11.0) fL Gran % (36.0-66.0) % Immature Gran % (Auto) (0.00-0.4) % Nucleat RBC Rel Count (0.00-0.1) % Eos # (Auto) (0-0.5) x10^3/uL Immature Gran # (Auto) (0.00-0.03) x10^3u/L Absolute Lymphs (auto) (1.0-4.6) x10^3/uL Absolute Monos (auto) (0.0-1.3) x10^3/uL Absolute Nucleated RBC (0.00-0.01) x10^3u/L Lymphocytes % (24.0-44.0) % Monocytes % (0.0-12.0) % Eosinophils % (0.00-5.0) % Basophils % (0.0-0.4) % Absolute Granulocytes (1.4-6.9) x10^3/uL Basophils # (0-0.4) x10^3/uL D-Dimer < 0.19 (0.0-0.50) mg/L Sodium 139 (137-145) mmol/L Potassium 3.5 (3.5-5.1) mmol/L Chloride 108 H (98-107) mmol/L Carbon Dioxide 21 L (22-30) mmol/L Anion Gap 13.5 (5-15) MEQ/L BUN 14 (9-20) mg/dL Creatinine 0.67 (0.66-1.25) mg/dL Estimated GFR > 60.0 ML/MIN Glucose 151 H (74-106) mg/dL Calcium 9.4 (8.4-10.2) mg/dL Total Bilirubin 0.70 (0.2-1.3) mg/dL AST 30 (17-59) U/L ALT 26 (0-50) U/L Alkaline Phosphatase 73 (38-126) U/L Troponin I < 0.012 (0.000-0.034) ng/mL NT-Pro-B Natriuret Pep 58.3 (0-450) pg/mL Serum Total Protein 7.1 (6.3-8.2) g/dL Albumin 4.2 (3.5-5.0) g/dL Urinalys Dipstick Clnc Urine Color (YELLOW) Urine Appearance (CLEAR) Urine pH (5-6) Ur Specific Hamill (1.005-1.025) POC Urine Protein Conf (Negative) Urine Ketones (NEGATIVE) Urine Nitrite (NEGATIVE) Urine Bilirubin (NEGATIVE) Urine Urobilinogen (0-1) mg/dL Urine Leukocytes (NEGATIVE) Urine WBC (Auto) (0-5) /HPF Urine RBC (Auto) (0-2) /HPF U Epithel Cells (Auto) (FEW) /HPF Urine Bacteria (Auto) (NEGATIVE) /HPF Urine RBC (0-5) Niles/ul Calcium Oxalate Crystal (NEGATIVE) /HPF Urine Mucus (Auto) (NEGATIVE) /HPF Ur Culture Indicated? Urine Glucose (NEGATIVE) mg/dL Urine Opiates Level (NEGATIVE) Ur Methadone (NEGATIVE) Urine Barbiturates (NEGATIVE) Ur Phencyclidine (PCP) (NEGATIVE) Urine Amphetamine (NEGATIVE) U Benzodiazepine Level (NEGATIVE) Urine Cocaine (NEGATIVE) Urine Marijuana (THC) (NEGATIVE) 09/04/21 Range/Units 09:49 WBC 6.5 (4.0-10.5) x10^3/uL RBC 4.60 (4.1-5.6) x10^6/uL Hgb 14.3 (12.5-18.0) g/dL Hct 42.3 (42-50) % MCV 92.0 (78-100) fL MCH 31.1 (26-32) pg MCHC 33.8 (32-36) g/dL RDW 13.2 (11.5-14.0) % Plt Count 219 (150-450) x10^3/uL MPV 9.1 (7.5-11.0) fL Gran % 76.3 H (36.0-66.0) % Immature Gran % (Auto) 0.3 (0.00-0.4) % Nucleat RBC Rel Count 0.0 (0.00-0.1) % Eos # (Auto) 0.13 (0-0.5) x10^3/uL Immature Gran # (Auto) 0.02 (0.00-0.03) x10^3u/L Absolute Lymphs (auto) 1.07 (1.0-4.6) x10^3/uL Absolute Monos (auto) 0.31 (0.0-1.3) x10^3/uL Absolute Nucleated RBC 0.00 (0.00-0.01) x10^3u/L Lymphocytes % 16.4 L (24.0-44.0) % Monocytes % 4.7 (0.0-12.0) % Eosinophils % 2.0 (0.00-5.0) % Basophils % 0.3 (0.0-0.4) % Absolute Granulocytes 4.98 (1.4-6.9) x10^3/uL Basophils # 0.02 (0-0.4) x10^3/uL D-Dimer (0.0-0.50) mg/L Sodium (137-145) mmol/L Potassium (3.5-5.1) mmol/L Chloride (98-107) mmol/L Carbon Dioxide (22-30) mmol/L Anion Gap (5-15) MEQ/L BUN (9-20) mg/dL Creatinine (0.66-1.25) mg/dL Estimated GFR ML/MIN Glucose (74-106) mg/dL Calcium (8.4-10.2) mg/dL Total Bilirubin (0.2-1.3) mg/dL AST (17-59) U/L ALT (0-50) U/L Alkaline Phosphatase (38-126) U/L Troponin I (0.000-0.034) ng/mL NT-Pro-B Natriuret Pep (0-450) pg/mL Serum Total Protein (6.3-8.2) g/dL Albumin (3.5-5.0) g/dL Urinalys Dipstick Clnc Urine Color (YELLOW) Urine Appearance (CLEAR) Urine pH (5-6) Ur Specific Hamill (1.005-1.025) POC Urine Protein Conf (Negative) Urine Ketones (NEGATIVE) Urine Nitrite (NEGATIVE) Urine Bilirubin (NEGATIVE) Urine Urobilinogen (0-1) mg/dL Urine Leukocytes (NEGATIVE) Urine WBC (Auto) (0-5) /HPF Urine RBC (Auto) (0-2) /HPF U Epithel Cells (Auto) (FEW) /HPF Urine Bacteria (Auto) (NEGATIVE) /HPF Urine RBC (0-5) Niles/ul Calcium Oxalate Crystal (NEGATIVE) /HPF Urine Mucus (Auto) (NEGATIVE) /HPF Ur Culture Indicated? Urine Glucose (NEGATIVE) mg/dL Urine Opiates Level (NEGATIVE) Ur Methadone (NEGATIVE) Urine Barbiturates (NEGATIVE) Ur Phencyclidine (PCP) (NEGATIVE) Urine Amphetamine (NEGATIVE) U Benzodiazepine Level (NEGATIVE) Urine Cocaine (NEGATIVE) Urine Marijuana (THC) (NEGATIVE) - Progress Progress: improved Air Movement: good Progress Note: Patient reassessed. He is not having chest pain at this time. Case discussed with Dr. Trujillo who states patient should be discharged home if second troponin negative. He will follow-up with Dr. Trujillo and obtain an outpatient stress test. Heart score is 1 risk of M ARLEEN is 0.9 to 1.7%. 09/04/21 11:11 Patient reassessed. He remains chest pain-free. Troponin negative x2. EKG normal sinus rhythm. Work-up reveals opiate and marijuana and toxicology screen. Calcium oxalate crystals in urine. Chest x-ray negative. Patient agrees to follow-up with Dr. Trujillo within 48 hours to obtain a outpatient cardiac stress test. Heart score is 1. No indication for further work-up or admission. Will discharge home. Patient voices no other complaints or concerns at this time. Portions of this note were created with voice recognition technology. There may be grammatical, spelling, punctuation or sound alike errors 09/04/21 12:33 Aspirin administered 09/04/21 12:34 Blood Culture(s) Obtained: No Antibiotics given: No Discussed with : Aaron Will see patient in: office (Patient will follow up with Dr. Trujillo who will order an outpatient stress test.) Counseled pt/family regarding: lab results, diagnosis, need for follow-up, rad results - Departure Departure Disposition: Home Clinical Impression: Chest pain, Opiate use, Marijuana use, Calcium oxalate in urine Condition: Stable Critical Care Time: No Referrals: KENIA TRUJILLO [Primary Care Provider] - Follow up/PCP as directed
[2021-09-04 09:51] LABS: Absolute Neutrophil Ct (ANC) 4.98 x10^3/uL (1.4-6.9); Basophil (Absolute #) 0.02 x10^3/uL (0-0.4); Eosinophil (Absolute #) 0.13 x10^3/uL (0-0.5); Hematocrit 42.3 % (42-50); Hemoglobin 14.3 g/dL (12.5-18.0); Lymphocyte (Absolute #) 1.07 x10^3/uL (1.0-4.6); Lymphocytes % 16.4 % (24.0-44.0); Mean Corpuscular Hemoglobin 31.1 pg (26-32); Mean Corpuscular Hgb Concent. 33.8 g/dL (32-36); Mean Platelet Volume 9.1 fL (7.5-11.0); Monocyte (Absolute #) 0.31 x10^3/uL (0.0-1.3); Monocytes % 4.7 % (0.0-12.0); Neutrophil % 76.3 % (36.0-66.0); Platelet Count 219 x10^3/uL (150-450); Red Cell Distribution Width 13.2 % (11.5-14.0); White Blood Count 6.5 x10^3/uL (4.0-10.5)
[2021-09-04 10:09] LABS: ALBUMIN 4.2 g/dL (3.5-5.0); ALKALINE PHOSPHATASE 73 U/L (38-126); ANION GAP 13.5 MEQ/L (5-15); BLOOD UREA NITROGEN 14 mg/dL (9-20); CHLORIDE 108 mmol/L (98-107); Calcium 9.4 mg/dL (8.4-10.2); Carbon Dioxide 21 mmol/L (22-30); Creatinine 1 0.67 mg/dL (0.66-1.25); EST GLOMERULAR FILTRATION RATE > 60.0 ML/MIN; Glucose 151 mg/dL (74-106); NT PRO BNP 58.3 pg/mL (0-450); Potassium 3.5 mmol/L (3.5-5.1); SGOT/AST 30 U/L (17-59); SGPT/ALT 26 U/L (0-50); SODIUM 139 mmol/L (137-145); Total Protein 7.1 g/dL (6.3-8.2)
--- NOTE | 2021-09-04 10:13 | XRAY ---
Exam: AP upright portable chest film from 09/04/2021. Comparison: PA upright chest film from 07/08/2017. Indication: 36-year-old male with chest pain. Findings: EKG leads are seen in place. The transverse heart size is normal. The eddy and mediastinal structures appear unremarkable. The lungs are adequately expanded. No definite air space infiltrates, pulmonary vascular congestion, pneumothorax, or pleural fluid is seen. No acute osseous process is seen. Impression: 1. No acute cardiopulmonary disease is seen, no change from 07/08/2017.
[2021-09-04 11:06] LABS: Appearance CLEAR (CLEAR); Bilirubin NEGATIVE (NEGATIVE); Dipstick done @ ? MAIN LAB; Glucose NEGATIVE (NEGATIVE); Ketones NEGATIVE (NEGATIVE); Nitrite NEGATIVE (NEGATIVE); Protein,Urine Dip NEGATIVE (Negative); RBC NEGATIVE Ery/ul (0-5); Specific Gravity 1.025 (1.005-1.025); Urobilinogen 0.2 mg/dL (0-1)
[2021-09-04 11:08] LABS: Bacteria NONE SEEN /HPF (NEGATIVE); Epithelial Cells OCCASIONAL /HPF (FEW); Mucus SLIGHT /HPF (NEGATIVE); WBC 0-2 /HPF (0-5)
[2021-09-04 11:09] LABS: Urine Cultured Indicated? NO
[2021-09-04 11:25] LABS: Amphetamine,Urine NEGATIVE (NEGATIVE); Barbiturate,Urine NEGATIVE (NEGATIVE); Benzodiazepine,Urine NEGATIVE (NEGATIVE); Cocaine,Urine NEGATIVE (NEGATIVE); Methadone,Urine NEGATIVE (NEGATIVE); Opiate,Urine POSITIVE (NEGATIVE); PCP,Urine NEGATIVE (NEGATIVE); THC,Urine POSITIVE (NEGATIVE)
[2021-09-04 12:36] VITALS: O2SAT 99
[2021-09-04 12:46] VITALS: BP 139/87; PULSE 66
== END 2021-09-04 12:50 | disposition home or self-care (01) ==
LOC: ED 09:26
DX: F11.90 Opioid use, unspecified, uncomplicated (principal); F12.90 Cannabis use, unspecified, uncomplicated; R07.9 Chest pain, unspecified; R82.998 Other abnormal findings in urine; Z72.0 Tobacco use; Z28.310 Unvaccinated for COVID-19
CPT/HCPCS: 36000; 36415; 71045; 80053; 80307; 81015; 83880; 84484; 85025; 85379; 93005; 93041; 94760; 99284; A9270-GY

== ENCOUNTER 2021-09-19 00:07 | Emergency (ER) | payer OTHER ==
[2021-09-19] MEDS ORDERED: TORAdol 30 mg Injection IM ONE (00:34)
[2021-09-19] MEDS ORDERED: Augmentin 875-125 Tablet PO ONE (00:34)
[2021-09-19] MEDS ORDERED: NORCO 5/325 MG PO ONE (00:34)
--- NOTE | 2021-09-19 00:37 | ERPHSYRPT ---
- History of Present Illness Time Seen by Provider: 09/19/21 00:39 Source: patient Exam Limitations: no limitations Patient Subjective Stated Complaint: pt states he has been having a headache and sore throat since his dental work two weeks ago. states his dentist states he perforated a membrane when he was working, pt states he has had a headache intermittently since that time. pt states he feels like his sinuses are being affected. pt states he has been spitting up yellow puss for 1 week. Triage Nursing Assessment: pt arrived in er with pain in jaw and head pain. pt is alert and oriented rates pain in head at 7/10 Physician History: Patient 36-year-old male presents to our ED for evaluation of dental pain and a sore throat. Patient states he had dental work done approximately 2 weeks ago. Since then he has been experiencing dental pain that tends to radiate towards the top of his head. No radiation at this time. Patient called his dentist. Patient has a dental appointment scheduled for next week. Patient is here requesting pain control. Patient also requesting antibiotics. Patient states he occasionally spits up yellow sputum. No cough. No chest pain or shortness of breath. No nausea vomiting or diaphoresis. Symptoms are mild to moderate in intensity. 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 He is otherwise healthy. He voices no other complaints or concerns at this time. Portions of this note were created with voice recognition technology. There may be grammatical, spelling, punctuation or sound alike errors Timing/Duration: week(s) Severity: moderate (2 weeks) Modifying Factors: Improves With: other (Symptoms worse with mastication.) Associated Symptoms: denies symptoms Allergies/Adverse Reactions: azithromycin [From Zithromax Z-Cody] Allergy (Mild, Verified 09/19/21 00:22) Diarrhea metronidazole [From Flagyl] Allergy (Unknown, Verified 09/19/21 00:22) Metronidazole HCl [From Flagyl] Allergy (Unknown, Verified 09/19/21 00:22) Home Medications: Acetaminophen 325 mg [Tylenol 325 mg] 650 mg PO Q6H PRN PRN 08/30/21 [History] Ibuprofen 200 mg [Motrin 200 mg] 800 mg PO Q6H PRN PRN 08/30/21 [History] Hx Tetanus, Diphtheria Vaccination/Date Given: Yes Hx Influenza Vaccination/Date Given: No Hx Pneumococcal Vaccination/Date Given: No Travel Risk - International Travel Have you traveled outside of the country in past 3 weeks: No - Coronavirus Screening Are you exhibiting any of the following symptoms?: No Close contact with a COVID-19 positive Pt in past 14-21 Days: No - Vaccine Status Have you recieved a Covid-19 vaccination: No - Review of Systems Constitutional: No Symptoms, No Fever, No Chills Eyes: No Symptoms Ears, Nose, & Throat: No Symptoms Respiratory: No Symptoms, No Cough, No Dyspnea Cardiac: No Symptoms, No Chest Pain, No Edema, No Syncope Abdominal/Gastrointestinal: No Symptoms, No Abdominal Pain, No Nausea, No Vomiting, No Diarrhea Genitourinary Symptoms: No Symptoms, No Dysuria Musculoskeletal: No Symptoms, No Back Pain, No Neck Pain Skin: No Symptoms, No Rash Neurological: No Symptoms, No Dizziness, No Focal Weakness, No Sensory Changes Psychological: No Symptoms Endocrine: No Symptoms Hematologic/Lymphatic: No Symptoms Immunological/Allergic: No Symptoms All Other Systems: Reviewed and Negative - Past Medical History Pertinent Past Medical History: Yes Neurological History: No Pertinent History ENT History: No Pertinent History Cardiac History: Arrhythmia Respiratory History: Asthma, Bronchitis, Pneumonia Endocrine Medical History: No Pertinent History Musculoskeletal History: No Pertinent History GI Medical History: No Pertinent History History: No Pertinent History Psycho-Social History: No Pertinent History Male Reproductive Disorders: No Pertinent History Other Medical History: HEART "SKIPS A BEAT EVERY ONCE IN A WHILE" - Past Surgical History Past Surgical History: Yes Musculoskeletal: Orthopedic Surgery Other Surgical History: foot surgery - Social History Smoking Status: Current every day smoker How long have you smoked: 20 yrs Exposure to second hand smoke: Yes Drug Use: marijuana Patient Lives Alone: Yes - Nursing Vital Signs Nursing Vital Signs: Initial Vital Signs Temperature 97.7 F 09/19/21 00:10 Pulse Rate 65 09/19/21 00:10 Respiratory Rate 18 09/19/21 00:10 Blood Pressure 135/86 09/19/21 00:10 Pain Scale Pain Intensity 7 - Physical Exam General Appearance: no apparent distress, alert Eye Exam: PERRL/EOMI, eyes nml inspection Ears, Nose, Throat Exam: normal ENT inspection, TMs normal, pharynx normal, moist mucous membranes, pharyngeal erythema, other (Erythematous and tender gingiva) Neck Exam: normal inspection, non-tender, supple, full range of motion Respiratory Exam: normal breath sounds, lungs clear, airway intact, No respiratory distress Cardiovascular Exam: regular rate/rhythm, normal heart sounds, normal peripheral pulses Gastrointestinal/Abdomen Exam: soft, normal bowel sounds, No tenderness, No mass Back Exam: normal inspection, normal range of motion, No CVA tenderness, No vertebral tenderness Extremity Exam: normal inspection, normal range of motion, pelvis stable Neurologic Exam: alert, oriented x 3, cooperative, normal mood/affect, nml cerebellar function, nml station & gait, sensation nml, No motor deficits Skin Exam: normal color, warm, dry, No rash Lymphatic Exam: No adenopathy SpO2 Interpretation: normal SpO2: 98 O2 Delivery: Room Air - Course Nursing assessment & vital signs reviewed: Yes Ordered Tests: Medication Summary Discontinued Medications Generic Name Dose Route Start Last Admin Trade Name Freq PRN Reason Stop Dose Admin Hydrocodone Bitart/Acetaminophen 4 tab 09/19/21 00:34 Hydrocodone/Apap 5/325 Mg Tablet PO 09/19/21 00:35 SENT HOME W/ PATIENT ONE Amoxicillin/Clavulanate Potassium 875 mg 09/19/21 00:34 Amox Tr/Potassium Clavulanate 875 Mg Tablet PO 09/19/21 00:35 STAT ONE Ketorolac Tromethamine 30 mg 09/19/21 00:34 Ketorolac Tromethamine 30 Mg/Ml Inj IM 09/19/21 00:35 STAT ONE - Progress Progress: improved Progress Note: 09/19/21 00:42 Patient reassessed. Pain improved. Patient received a dose of Augmentin in our ED. Patient also received pain control. A prescription for Augmentin was forwarded to patient's pharmacy. Patient received 4 Se[place]ift pills for home. Patient will contact his dentist for a reevaluation. No further work-up indicated at this time. Will discharge home. Portions of this note were created with voice recognition technology. There may be grammatical, spelling, punctuation or sound alike errors Counseled pt/family regarding: diagnosis, need for follow-up - Departure Departure Disposition: Home Clinical Impression: Pharyngitis, Dental infection, Pain, dental Condition: Stable Critical Care Time: No Referrals: KENIA ROBERTO [Primary Care Provider] - Follow up/PCP as directed Additional Instructions: Discharge/Care Plan ROSEMARIE TOURE was seen on 09/19/21 in the Emergency Room. The patient was counseled regarding Diagnosis,Lab results, Imaging studies, need for follow up and when to return to the Emergency Room. Prescriptions given: Discharge Note I have spoken with the patient and/or caregivers. I have explained the patient's condition, diagnosis and treatment plan based on the information available to me at this time. I have answered the patient's and/or caregiver's questions and addressed any concerns. The patient and/or caregivers have as good understanding of the patient's diagnosis, condition and treatment plan as can be expected at this point. The vital signs have been stable. The patient's condition is stable and appropriate for discharge from the emergency department. The patient will pursue further outpatient evaluation with the primary care physician or other designated or consulting physician as outlined in the discharge instructions. The patient and/or caregivers are agreeable to this plan of care and follow-up instructions have been explained in detail. The patient and/or caregivers have received these instruction. The patient/and or caregivers are aware that any significant change in condition or worsening of symptoms should prompt an immediate return to this or the closest emergency department or call 911. Prescriptions: Amox Tr/Potass Clav. 875 mg [Augmentin 875-125 Tablet] 875 mg PO BID 7 Days #14 tablet
[2021-09-19] MEDS ORDERED: Augmentin 875-125 Tablet ONE (00:49)
[2021-09-19] MEDS ORDERED: TORAdol 30 mg Injection ONE (00:49)
[2021-09-19] MEDS ORDERED: NORCO 5/325 MG ONE (00:49)
[2021-09-19 01:07] VITALS: BP 122/82; PULSE 67; O2SAT 95
== END 2021-09-19 01:07 | disposition home or self-care (01) ==
LOC: ED 00:07
DX: J02.9 Acute pharyngitis, unspecified (principal); K04.7 Periapical abscess without sinus; K08.89 Other specified disorders of teeth and supporting structures; Z72.0 Tobacco use; Z28.310 Unvaccinated for COVID-19
CPT/HCPCS: 96372; 99283; J1885; A9270-GY

== ENCOUNTER 2021-10-06 17:18 | Emergency (ER) | payer OTHER ==
[2021-10-06] MEDS ORDERED: TORAdol 30 mg Injection IM ONE (17:48)
[2021-10-06] MEDS ORDERED: Augmentin 875-125 Tablet PO ONE (17:48)
[2021-10-06] MEDS ORDERED: MAALOX ES 30 ML UNIT DOSE PO ONE (17:49)
[2021-10-06] MEDS ORDERED: XYLOCAINE VISCOUS 2% 15 ML CUP PO ONE (17:49)
[2021-10-06] MEDS ORDERED: CETACAINE SPRAY TP ONE (17:49)
[2021-10-06] MEDS ORDERED: TORAdol 30 mg Injection ONE (17:53)
[2021-10-06] MEDS ORDERED: Augmentin 875-125 Tablet ONE (17:53)
[2021-10-06] MEDS ORDERED: MAALOX ES 30 ML UNIT DOSE ONE (18:00)
[2021-10-06] MEDS ORDERED: XYLOCAINE VISCOUS 2% 15 ML CUP ONE (18:00)
--- NOTE | 2021-10-06 18:02 | ERPHSYRPT ---
- History of Present Illness Time Seen by Provider: 10/06/21 17:29 Source: patient Exam Limitations: no limitations Patient Subjective Stated Complaint: pain in top left side of mouth that began yesterday Triage Nursing Assessment: Pt brought self to the ER, hypertensive, rates pain as 8/10, had previous teeth pulled that was causing problems and now this is different teeth, pain in the upper left side of mouth, no other issues at this time Physician History: 36-year-old male with history of dental caries with periodontal disease, multiple extractions recently presented in the ER with pain in the left upper molar area, moderate to severe sharp throbbing with radiation to the left side of the head for the last 2 to 3 days. Taking [id number] pain medication with no significant relief. Mild swelling of gingiva/face also reported. No fever or chills reported. Timing/Duration: gradual onset, persistent, days (3) Severity: moderate, severe ENT Location: dental Prearrival Treatment: over the counter meds Associated Symptoms: headache Allergies/Adverse Reactions: azithromycin [From Zithromax Z-Cody] Allergy (Mild, Verified 10/06/21 17:32) Diarrhea metronidazole [From Flagyl] Allergy (Unknown, Verified 10/06/21 17:32) Metronidazole HCl [From Flagyl] Allergy (Unknown, Verified 10/06/21 17:32) Home Medications: Acetaminophen 325 mg [Tylenol 325 mg] 650 mg PO Q6H PRN PRN 08/30/21 [History] Ibuprofen 200 mg [Motrin 200 mg] 800 mg PO Q6H PRN PRN 08/30/21 [History] Hx Tetanus, Diphtheria Vaccination/Date Given: Yes Hx Influenza Vaccination/Date Given: No Hx Pneumococcal Vaccination/Date Given: No Travel Risk - International Travel Have you traveled outside of the country in past 3 weeks: No - Coronavirus Screening Are you exhibiting any of the following symptoms?: No Close contact with a COVID-19 positive Pt in past 14-21 Days: No - Vaccine Status Have you recieved a Covid-19 vaccination: No - Review of Systems Constitutional: No Symptoms Eyes: No Symptoms Ears, Nose, & Throat: Mouth Pain, Mouth Swelling, Loose Teeth Respiratory: No Symptoms Cardiac: No Symptoms Abdominal/Gastrointestinal: No Symptoms Musculoskeletal: No Symptoms Skin: No Symptoms Neurological: No Symptoms Endocrine: No Symptoms Hematologic/Lymphatic: No Symptoms - Past Medical History Pertinent Past Medical History: Yes Neurological History: No Pertinent History ENT History: No Pertinent History Cardiac History: Arrhythmia Respiratory History: Asthma, Bronchitis, Pneumonia Endocrine Medical History: No Pertinent History Musculoskeletal History: No Pertinent History GI Medical History: No Pertinent History History: No Pertinent History Psycho-Social History: No Pertinent History Male Reproductive Disorders: No Pertinent History Other Medical History: HEART "SKIPS A BEAT EVERY ONCE IN A WHILE" - Past Surgical History Past Surgical History: Yes Musculoskeletal: Orthopedic Surgery Other Surgical History: foot surgery - Social History Smoking Status: Current every day smoker How long have you smoked: 20 yrs Exposure to second hand smoke: Yes Drug Use: marijuana Patient Lives Alone: Yes - Nursing Vital Signs Nursing Vital Signs: Initial Vital Signs Temperature 97.5 F 10/06/21 17:25 Pulse Rate 81 10/06/21 17:25 Blood Pressure 141/81 10/06/21 17:25 O2 Sat by Pulse Oximetry 98 10/06/21 17:25 Pain Scale Pain Intensity 8 - Physical Exam General Appearance: no apparent distress, alert Eye Exam: bilateral eye: normal inspection, PERRL, EOMI Ear Exam: bilateral ear: auricle normal, canal normal, TM normal Nasal Exam: normal inspection Throat Exam: normal, pharynx normal, dental tenderness (Multiple upper and lower dental areas. Broken molar with swelling around gingiva. Tenderness to palpation. 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 Skin Exam: normal color SpO2 Interpretation: normal SpO2: 98 O2 Delivery: Room Air Ordered Tests: Medication Summary Discontinued Medications Generic Name Dose Route Start Last Admin Trade Name Freq PRN Reason Stop Dose Admin Al Hydrox/Mg Hydrox/Simethicone 10 ml 10/06/21 17:49 Mag Hydrox/Al Hydrox/Simeth 30 Ml Udcup PO 10/06/21 17:50 STAT ONE Amoxicillin/Clavulanate Potassium 875 mg 10/06/21 17:48 10/06/21 17:55 Amox Tr/Potassium Clavulanate 875 Mg Tablet PO 10/06/21 17:49 875 mg STAT ONE Administration Amoxicillin/Clavulanate Potassium Confirm 10/06/21 17:53 Amox Tr/Potassium Clavulanate 875 Mg Tablet Administered 10/06/21 17:54 Dose 875 mg .ROUTE .STK-MED ONE Benzocaine/Butamben/Tetracaine HCl 1 spray 10/06/21 17:49 Tetracaine/Benzocaine/Butamben 1 [place] Melrose TP 10/06/21 17:50 ONCE ONE Ketorolac Tromethamine 30 mg 10/06/21 17:48 10/06/21 17:55 Ketorolac Tromethamine 30 Mg/Ml Inj IM 10/06/21 17:49 30 mg STAT ONE Administration Ketorolac Tromethamine Confirm 10/06/21 17:53 Ketorolac Tromethamine 30 Mg/Ml Inj Administered 10/06/21 17:54 Dose 30 mg .ROUTE .STK-MED ONE Lidocaine HCl 10 ml 10/06/21 17:49 Lidocaine Hcl 2% Viscous 15 Ml Udcup PO 10/06/21 17:50 STAT ONE - Progress Progress: improved, pain not gone completely Progress Note: 10/06/21 18:05 Given Toradol for symptomatic relief, started on Augmentin. Given dental balls for localized pain relief. Outpatient dental follow-up recommended. Counseled pt/family regarding: diagnosis, need for follow-up - Departure Departure Disposition: Home Clinical Impression: Dental infection Condition: Stable Critical Care Time: No Referrals: KENIA ROBERTO [Primary Care Provider] - Follow up/PCP as directed GLYNN ESPAÑA DDS [NON-STAFF PHY W/O PRIVILEGES] - Follow up/PCP as directed (2 days for reevaluation) Instructions: Tooth Abscess (DC) Additional Instructions: Take Tylenol/ibuprofen as needed for pain. Follow-up with dentist for reevaluation. Return to ER for worsening pain, swelling, fever chills etc. Prescriptions: Ibuprofen 600 mg PO Q6HPRN PRN 10 Days #20 tablet PRN Reason: Pain Amox Tr/Potass Clav. 875 mg [Augmentin 875-125 Tablet] 875 mg PO BID #14 tablet
[2021-10-06 18:24] VITALS: BP 135/86; PULSE 76; O2SAT 97
== END 2021-10-06 18:24 | disposition home or self-care (01) ==
LOC: ED 17:18
DX: K04.7 Periapical abscess without sinus (principal); K08.89 Other specified disorders of teeth and supporting structures; Z72.0 Tobacco use; Z28.310 Unvaccinated for COVID-19
CPT/HCPCS: 96372; 99283; J1885; A9270-GY

== ENCOUNTER 2021-10-14 23:42 | Emergency (ER) | payer OTHER ==
--- NOTE | 2021-10-14 23:45 | ERPHSYRPT ---
- History of Present Illness Time Seen by Provider: 10/14/21 23:45 Source: patient Exam Limitations: no limitations Physician History: This is a 36-year-old white male who is been in our emergency department multiple times for issues with chronic dental caries and periodontal disease. Patient states that he has seen the dentist several times and he is undergone several 1-2 tooth extractions at a time. Patient most recently was seen here on 10/06/2021 and was given a prescription for Toradol and told to also add acetaminophen to the pain regimen. He was also given 7-day prescription for Augmentin. His symptoms have not been relieved. He has not seen a dentist after the most recent treatment. Patient has generalized dental caries and periodontal disease. Timing/Duration: gradual onset, weeks Severity: mild (To moderate) ENT Location: dental Prearrival Treatment: over the counter meds Associated Symptoms: tooth pain Allergies/Adverse Reactions: azithromycin [From Zithromax Z-Cody] Allergy (Mild, Verified 10/14/21 23:55) Diarrhea metronidazole [From Flagyl] Allergy (Unknown, Verified 10/14/21 23:55) Metronidazole HCl [From Flagyl] Allergy (Unknown, Verified 10/14/21 23:55) Home Medications: Acetaminophen 325 mg [Tylenol 325 mg] 650 mg PO Q6H PRN PRN 08/30/21 [History] Ibuprofen 200 mg [Motrin 200 mg] 800 mg PO Q6H PRN PRN 08/30/21 [History] Hx Tetanus, Diphtheria Vaccination/Date Given: Yes Hx Influenza Vaccination/Date Given: No Hx Pneumococcal Vaccination/Date Given: No Travel Risk - International Travel Have you traveled outside of the country in past 3 weeks: No - Coronavirus Screening Are you exhibiting any of the following symptoms?: No Close contact with a COVID-19 positive Pt in past 14-21 Days: No - Vaccine Status Have you recieved a Covid-19 vaccination: No - Review of Systems Constitutional: No Symptoms Eyes: No Symptoms Ears, Nose, & Throat: Other (Upper, anterior central dental pain) Respiratory: No Symptoms Cardiac: No Symptoms Abdominal/Gastrointestinal: No Symptoms Genitourinary Symptoms: No Symptoms Musculoskeletal: No Symptoms Skin: No Symptoms Neurological: No Symptoms Psychological: No Symptoms Endocrine: No Symptoms Hematologic/Lymphatic: No Symptoms Immunological/Allergic: No Symptoms All Other Systems: Reviewed and Negative - Past Medical History Pertinent Past Medical History: Yes Neurological History: No Pertinent History ENT History: No Pertinent History Cardiac History: Arrhythmia Respiratory History: Asthma, Bronchitis, Pneumonia Endocrine Medical History: No Pertinent History Musculoskeletal History: No Pertinent History GI Medical History: No Pertinent History History: No Pertinent History Psycho-Social History: No Pertinent History Male Reproductive Disorders: No Pertinent History Other Medical History: HEART "SKIPS A BEAT EVERY ONCE IN A WHILE" - Past Surgical History Past Surgical History: Yes Musculoskeletal: Orthopedic Surgery Other Surgical History: foot surgery - Social History Smoking Status: Current every day smoker How long have you smoked: 20 yrs Exposure to second hand smoke: Yes Drug Use: marijuana Patient Lives Alone: Yes - Nursing Vital Signs Nursing Vital Signs: Initial Vital Signs Temperature 98.4 F 10/14/21 23:45 Pulse Rate 86 10/14/21 23:45 Respiratory Rate 18 10/14/21 23:45 Blood Pressure 147/85 10/14/21 23:45 O2 Sat by Pulse Oximetry 98 10/14/21 23:45 Pain Scale Pain Intensity 10 - Physical Exam General Appearance: no apparent distress, alert, anxiety Eye Exam: bilateral eye: normal inspection, PERRL, EOMI Ear Exam: bilateral ear: auricle normal Nasal Exam: normal inspection Throat Exam: dental tenderness (Generalized dental caries. 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, normal mood/affect, nml cerebellar function, nml station & gait, sensation nml Skin Exam: normal color, warm, dry SpO2 Interpretation: normal O2 Delivery: Room Air - Course Nursing assessment & vital signs reviewed: Yes - Progress Progress: unchanged Counseled pt/family regarding: diagnosis, need for follow-up - Departure Departure Disposition: Home Clinical Impression: Pain due to dental caries Condition: Stable Critical Care Time: No Referrals: KENIA ROBERTO [Primary Care Provider] - Follow up/PCP as directed Additional Instructions: Continue ibuprofen 600 mg orally with food 3 times a day for the next 5 days. Contact a dentist for definitive care. Take your antibiotics as prescribed. May add [id number] topical pain controlling agents. Prescriptions: Clindamycin HCl 150 mg [Cleocin 150 mg Capsule] 2 cap PO QID #56 cap
[2021-10-14 23:55] VITALS: BP 147/85; PULSE 86; O2SAT 98
[2021-10-15] MEDS ORDERED: CLEOCIN 150 MG CAPSULE PO ONE (00:04)
[2021-10-15] MEDS ORDERED: PERCOCET TABLET 5/325MG PO STA (00:05)
[2021-10-15] MEDS ORDERED: PERCOCET TABLET 5/325MG ONE (00:07)
[2021-10-15] MEDS ORDERED: CLEOCIN 150 MG CAPSULE ONE (00:07)
== END 2021-10-15 00:19 | disposition home or self-care (01) ==
LOC: ED 23:42
DX: K02.9 Dental caries, unspecified (principal); K08.89 Other specified disorders of teeth and supporting structures; Z72.0 Tobacco use; Z28.310 Unvaccinated for COVID-19
CPT/HCPCS: 99281; A9270-GY

== ENCOUNTER 2021-11-11 21:53 | Emergency (ER) | payer OTHER ==
[2021-11-11 21:59] VITALS: O2SAT 97
[2021-11-11 22:09] VITALS: BP 141/97; PULSE 85
[2021-11-11] MEDS ORDERED: NORCO 5/325 MG PO ONE (22:15)
[2021-11-11] MEDS ORDERED: TORAdol 30 mg Injection IM ONE (22:15)
[2021-11-11] MEDS ORDERED: NORCO 5/325 MG ONE (22:19)
[2021-11-11] MEDS ORDERED: TORAdol 30 mg Injection ONE (22:19)
--- NOTE | 2021-11-11 22:28 | ERPHSYRPT ---
- History of Present Illness Time Seen by Provider: 11/11/21 22:15 Source: patient Exam Limitations: no limitations Patient Subjective Stated Complaint: I'm having teeth and jaw/face pain on the right side. Triage Nursing Assessment: pt ambulated into ER without diff. Pt c/o upper front tooth pain which radiates to rt jaw, rt cheek and rt ear area. Pain has been ongoing off and on x2 years, but got really bad last night and hasn't let up. No swelling noted. Physician History: 36-year-old with history of periodontal disease, dental caries scheduled for removal with replacement of dentures presented with increasing pain on the both upper and lower jaw more on the right side the last few days with no response to taking Tylenol/ibuprofen. No increased swelling of gingiva. Patient recently finished course of amoxicillin and clindamycin. No fever or chills reported. Timing/Duration: gradual onset, intermittent, weeks Severity: moderate, severe ENT Location: dental Prearrival Treatment: over the counter meds, prescription meds Associated Symptoms: ear pain (R), facial pain/swelling, headache, jaw pain, tooth pain, No fever, No change in hearing, No ear drainage Allergies/Adverse Reactions: azithromycin [From Zithromax Z-Cody] Allergy (Mild, Verified 11/11/21 22:05) Diarrhea metronidazole [From Flagyl] Allergy (Unknown, Verified 11/11/21 22:05) Metronidazole HCl [From Flagyl] Allergy (Unknown, Verified 11/11/21 22:05) Home Medications: Acetaminophen 325 mg [Tylenol 325 mg] 975 mg PO Q6H PRN PRN 08/30/21 [History] Ibuprofen 200 mg [Motrin 200 mg] 800 mg PO Q6H PRN PRN 08/30/21 [History] Hx Tetanus, Diphtheria Vaccination/Date Given: (unknown) Hx Influenza Vaccination/Date Given: No Hx Pneumococcal Vaccination/Date Given: No Travel Risk - International Travel Have you traveled outside of the country in past 3 weeks: No - Coronavirus Screening Are you exhibiting any of the following symptoms?: No Close contact with a COVID-19 positive Pt in past 14-21 Days: No - Vaccine Status Have you recieved a Covid-19 vaccination: No - Review of Systems Constitutional: No Symptoms Eyes: No Symptoms Ears, Nose, & Throat: Mouth Pain Respiratory: No Symptoms Cardiac: No Symptoms Genitourinary Symptoms: No Symptoms Musculoskeletal: No Symptoms Skin: No Symptoms Neurological: No Symptoms Endocrine: No Symptoms Hematologic/Lymphatic: No Symptoms Immunological/Allergic: No Symptoms - Past Medical History Pertinent Past Medical History: Yes Neurological History: No Pertinent History ENT History: No Pertinent History Cardiac History: Arrhythmia Respiratory History: Asthma, Bronchitis, Pneumonia Endocrine Medical History: No Pertinent History Musculoskeletal History: No Pertinent History GI Medical History: No Pertinent History History: No Pertinent History Psycho-Social History: No Pertinent History Male Reproductive Disorders: No Pertinent History Other Medical History: HEART "SKIPS A BEAT EVERY ONCE IN A WHILE" - Past Surgical History Past Surgical History: Yes Musculoskeletal: Orthopedic Surgery Other Surgical History: foot surgery - Social History Smoking Status: Current every day smoker How long have you smoked: 20 yrs Exposure to second hand smoke: Yes Drug Use: marijuana Patient Lives Alone: Yes - Nursing Vital Signs Nursing Vital Signs: Initial Vital Signs Temperature 97.6 F 11/11/21 21:58 Pulse Rate 77 11/11/21 21:58 Respiratory Rate 18 11/11/21 21:58 Blood Pressure 129/72 11/11/21 21:58 O2 Sat by Pulse Oximetry 97 11/11/21 21:58 Pain Scale Pain Intensity 9 - Physical Exam General Appearance: no apparent distress, alert Eye Exam: bilateral eye: normal inspection, PERRL, EOMI Ear Exam: bilateral ear: auricle normal, canal normal, TM normal Nasal Exam: normal inspection Throat Exam: pharynx normal, dental tenderness (Multiple broken teeth with periodontal disease. Dental and gingival tenderness. 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 Skin Exam: normal color SpO2 Interpretation: normal SpO2: 97 O2 Delivery: Room Air Ordered Tests: Medication Summary Discontinued Medications Generic Name Dose Route Start Last Admin Trade Name Freq PRN Reason Stop Dose Admin Hydrocodone Bitart/Acetaminophen 2 tab 11/11/21 22:15 11/11/21 22:21 Hydrocodone/Apap 5/325 Mg Tablet PO 11/11/21 22:16 2 tab SENT HOME W/ PATIENT ONE Administration Hydrocodone Bitart/Acetaminophen Confirm 11/11/21 22:19 Hydrocodone/Apap 5/325 Mg Tablet Administered 11/11/21 22:20 Dose 2 tab .ROUTE .STK-MED ONE Ketorolac Tromethamine 30 mg 11/11/21 22:15 11/11/21 22:21 Ketorolac Tromethamine 30 Mg/Ml Inj IM 11/11/21 22:16 30 mg STAT ONE Administration Ketorolac Tromethamine Confirm 11/11/21 22:19 Ketorolac Tromethamine 30 Mg/Ml Inj Administered 11/11/21 22:20 Dose 30 mg .ROUTE .STK-MED ONE - Progress Progress: pain not gone completely Progress Note: 11/11/21 22:27 Given Toradol for symptomatic relief. We will give couple of [place]'s to go home and outpatient dental follow-up recommended. Do not think needs antibiotic as it seems more often moderate exposed pain. Counseled pt/family regarding: diagnosis, need for follow-up - Departure Departure Disposition: Home Clinical Impression: Pain, dental Condition: Stable Critical Care Time: No Referrals: KENIA ROBERTO [Primary Care Provider] - Follow Up with PCP/3 days Instructions: Dental Pain (DC) Additional Instructions: Follow-up with your dentist for reevaluation. Take Tylenol/ibuprofen as needed.
== END 2021-11-11 22:35 | disposition home or self-care (01) ==
LOC: ED 21:53
DX: K08.89 Other specified disorders of teeth and supporting structures (principal); Z72.0 Tobacco use; Z28.310 Unvaccinated for COVID-19
CPT/HCPCS: 96372; 99282; J1885; A9270-GY

== ENCOUNTER 2022-02-09 15:47 | Emergency (ER) | payer OTHER ==
[2022-02-09] MEDS ORDERED: TORAdol 30 mg Injection IV ONE (17:12)
[2022-02-09] MEDS ORDERED: Zofran 4 MG/2 ML VIAL IV ONE (17:12)
[2022-02-09] MEDS ORDERED: Sodium Chloride 0.9% 1000 ML 1,000 ML IV STA (17:12)
[2022-02-09 17:23] LABS: Appearance CLEAR (CLEAR); Bilirubin NEGATIVE (NEGATIVE); Dipstick done @ ? MAIN LAB; Glucose NEGATIVE (NEGATIVE); Ketones NEGATIVE (NEGATIVE); Nitrite NEGATIVE (NEGATIVE); Protein,Urine Dip NEGATIVE (Negative); RBC NEGATIVE Ery/ul (0-5); Specific Gravity 1.025 (1.005-1.025); Urobilinogen 0.2 mg/dL (0-1)
[2022-02-09 17:25] LABS: Amourphous Crystal FEW /HPF (NEGATIVE); Mucus SLIGHT /HPF (NEGATIVE)
[2022-02-09 17:26] LABS: Urine Cultured Indicated? NO
--- NOTE | 2022-02-09 17:29 | ERPHSYRPT ---
- History of Present Illness Time Seen by Provider: 02/09/22 16:11 Historian: patient Exam Limitations: no limitations Patient Subjective Stated Complaint: PT HERE FOR DIFFUSE ABD PAIN FOR OVER A MONTH NOW, WORSE LAST COUP,E DAYS, LOST ABOUT 60 LBS IN LAST 5 MONTHS Triage Nursing Assessment: PT ALERT, RESP EASY, FACE MASK IN PLACE, ABD SOFT, SKIN W/D/P Physician History: 37 years old male presented in the ER with chief complaint of periumbilical pain off and on for the last couple of months and got worse for the last 2 days. Patient also reports having loose stools/diarrhea and noticed bright red blood few drops every time he has a bowel movement for last 2 days. No fever or chills reported. Denies any nausea or vomiting. Patient reports having off-and-on discomfort for quite some time and has lost almost 50 pounds in last few months. No fever or chills reported. Does have family history of Crohn's disease. Denies history of hemorrhoids or fissure/constipation. Timing/Duration: week(s) (2), intermittent, gradual onset, worse Activities at Onset: rest Quality: sharpness Abdominal Pain Onset Location: periumbilical Pain Radiation: no radiation Severity of Pain-Max: moderate Severity of Pain-Current: moderate Modifying Factors: Improves With: nothing Associated Symptoms: denies symptoms Allergies/Adverse Reactions: azithromycin [From Zithromax Z-Cody] Allergy (Mild, Verified 02/09/22 16:35) Diarrhea metronidazole [From Flagyl] Allergy (Unknown, Verified 02/09/22 16:35) Metronidazole HCl [From Flagyl] Allergy (Unknown, Verified 02/09/22 16:35) Home Medications: Meloxicam [Mobic] 1 ea DAILY 02/09/22 [History] Hx Tetanus, Diphtheria Vaccination/Date Given: (unknown) Hx Influenza Vaccination/Date Given: No Hx Pneumococcal Vaccination/Date Given: No Immunizations Up to Date: Yes Travel Risk - International Travel Have you traveled outside of the country in past 3 weeks: No - Coronavirus Screening Are you exhibiting any of the following symptoms?: No Close contact with a COVID-19 positive Pt in past 14-21 Days: No - Vaccine Status Have you recieved a Covid-19 vaccination: No - Review of Systems Constitutional: Fatigue, Weakness Eyes: No Symptoms Ears, Nose, & Throat: No Symptoms Respiratory: No Symptoms Cardiac: No Symptoms Abdominal/Gastrointestinal: Abdominal Pain, Hematochezia Genitourinary Symptoms: No Symptoms Musculoskeletal: No Symptoms Skin: No Symptoms Neurological: No Symptoms Psychological: No Symptoms Endocrine: No Symptoms Hematologic/Lymphatic: No Symptoms Immunological/Allergic: No Symptoms - Past Medical History Pertinent Past Medical History: Yes Neurological History: No Pertinent History ENT History: No Pertinent History Cardiac History: Arrhythmia Respiratory History: Asthma, Bronchitis, Pneumonia Endocrine Medical History: No Pertinent History Musculoskeletal History: No Pertinent History GI Medical History: No Pertinent History History: No Pertinent History Psycho-Social History: No Pertinent History Male Reproductive Disorders: No Pertinent History Other Medical History: HEART "SKIPS A BEAT EVERY ONCE IN A WHILE" - Past Surgical History Past Surgical History: Yes Musculoskeletal: Orthopedic Surgery Other Surgical History: foot surgery , ORAL SURGERY - Social History Smoking Status: Current every day smoker How long have you smoked: 20 yrs Exposure to second hand smoke: Yes Drug Use: marijuana Patient Lives Alone: Yes - Nursing Vital Signs Nursing Vital Signs: Initial Vital Signs Temperature 97.0 F 02/09/22 16:34 Pulse Rate 67 02/09/22 16:34 Respiratory Rate 18 02/09/22 16:34 Blood Pressure 117/76 02/09/22 16:34 O2 Sat by Pulse Oximetry 96 02/09/22 16:34 Pain Scale Pain Intensity 7 - Physical Exam General Appearance: no apparent distress, alert Eye Exam: PERRL/EOMI Ears, Nose, Throat Exam: normal ENT inspection Neck Exam: normal inspection, supple, full range of motion Respiratory Exam: normal breath sounds, lungs clear Cardiovascular Exam: regular rate/rhythm, normal heart sounds Gastrointestinal/Abdomen Exam: soft, normal bowel sounds, tenderness (Periumbilical area) Back Exam: normal inspection Extremity Exam: normal inspection, normal range of motion Neurologic Exam: alert, oriented x 3, cooperative Skin Exam: normal color SpO2 Interpretation: normal SpO2: 96 O2 Delivery: Room Air Ordered Tests: Active Orders 24 hr Category Date Time Status IV Insertion STAT Care 02/09/22 17:12 Active NPO (ED) STAT Care 02/09/22 17:12 Active ABDOMEN AND PELVIS W/0 CONTRAS [CT] Routine Exams 02/09/22 18:24 Taken CBC W DIFF Stat Lab 02/09/22 17:37 Completed CMP Stat Lab 02/09/22 17:37 Completed LIPASE Stat Lab 02/09/22 17:37 Completed UA W/RFX CULTURE Stat Lab 02/09/22 17:17 Completed Medication Summary Discontinued Medications Generic Name Dose Route Start Last Admin Trade Name Jeferson PRN Reason Stop Dose Admin Acetaminophen 1,000 mg 02/09/22 19:13 02/09/22 19:16 Acetaminophen 500 Mg Tablet PO 02/09/22 19:14 1,000 mg STAT STA Administration Acetaminophen Confirm 02/09/22 19:14 Acetaminophen 500 Mg Tablet Administered 02/09/22 19:15 Dose 1,000 mg .ROUTE .STK-MED ONE Sodium Chloride 1,000 mls @ 999 mls/hr 02/09/22 17:12 02/09/22 18:42 Sodium Chloride 0.9% 1000 Ml IV 02/09/22 18:12 Infused .Q1H1M STA Infusion Sodium Chloride Confirm 02/09/22 17:37 Sodium Chloride 0.9% 1000 Ml Administered 02/09/22 17:38 Dose 1,000 mls @ ud .ROUTE .STK-MED ONE Ketorolac Tromethamine 30 mg 02/09/22 17:12 02/09/22 17:40 Ketorolac Tromethamine 30 Mg/Ml Inj IV 02/09/22 17:13 30 mg STAT ONE Administration Ketorolac Tromethamine Confirm 02/09/22 17:37 Ketorolac Tromethamine 30 Mg/Ml Inj Administered 02/09/22 17:38 Dose 30 mg .ROUTE .STK-MED ONE Ondansetron HCl 4 mg 02/09/22 17:12 02/09/22 17:40 Ondansetron Hcl 4 Mg/2 Ml Vial IV 02/09/22 17:13 4 mg STAT ONE Administration Ondansetron HCl Confirm 02/09/22 17:37 Ondansetron Hcl 4 Mg/2 Ml Vial Administered 02/09/22 17:38 Dose 4 mg .ROUTE .STK-MED ONE Pantoprazole Sodium 40 mg 02/09/22 19:13 02/09/22 19:16 Pantoprazole 40 Mg Vial IV 02/09/22 19:14 40 mg STAT ONE Administration Pantoprazole Sodium Confirm 02/09/22 19:14 Pantoprazole 40 Mg Vial Administered 02/09/22 19:15 Dose 40 mg IV .STK-MED ONE Lab/Rad Data: Laboratory Result Diagrams 02/09/22 17:37 02/09/22 17:37 Laboratory Results 02/09/22 02/09/22 02/09/22 Range/Units 17:37 17:37 17:17 WBC 5.7 (4.0-10.5) x10^3/uL RBC 4.82 (4.1-5.6) x10^6/uL Hgb 14.9 (12.5-18.0) g/dL Hct 45.3 (42-50) % MCV 94.0 (78-100) fL MCH 30.9 (26-32) pg MCHC 32.9 (32-36) g/dL RDW 13.2 (11.5-14.0) % Plt Count 221 (150-450) x10^3/uL MPV 9.5 (7.5-11.0) fL Gran % 58.8 (36.0-66.0) % Immature Gran % (Auto) 0.2 (0.00-0.4) % Nucleat RBC Rel Count 0.0 (0.00-0.1) % Eos # (Auto) 0.21 (0-0.5) x10^3/uL Immature Gran # (Auto) 0.01 (0.00-0.03) x10^3u/L Absolute Lymphs (auto) 1.51 (1.0-4.6) x10^3/uL Absolute Monos (auto) 0.58 (0.0-1.3) x10^3/uL Absolute Nucleated RBC 0.00 (0.00-0.01) x10^3u/L Lymphocytes % 26.7 (24.0-44.0) % Monocytes % 10.2 (0.0-12.0) % Eosinophils % 3.7 (0.00-5.0) % Basophils % 0.4 (0.0-0.4) % Absolute Granulocytes 3.33 (1.4-6.9) x10^3/uL Basophils # 0.02 (0-0.4) x10^3/uL Sodium 139 (137-145) mmol/L Potassium 4.4 (3.5-5.1) mmol/L Chloride 106 (98-107) mmol/L Carbon Dioxide 27 (22-30) mmol/L Anion Gap 11.2 (5-15) MEQ/L BUN 11 (9-20) mg/dL Creatinine 0.75 (0.66-1.25) mg/dL Estimated GFR > 60.0 ML/MIN Glucose 89 (74-106) mg/dL Calcium 8.9 (8.4-10.2) mg/dL Total Bilirubin 0.60 (0.2-1.3) mg/dL AST 23 (17-59) U/L ALT 26 (0-50) U/L Alkaline Phosphatase 93 (38-126) U/L Serum Total Protein 7.3 (6.3-8.2) g/dL Albumin 4.5 (3.5-5.0) g/dL Lipase 88 (23-300) U/L Urinalys Dipstick Clnc MAIN LAB Urine Color YELLOW (YELLOW) Urine Appearance CLEAR (CLEAR) Urine pH 7.0 (5-6) Ur Specific [place] 1.025 (1.005-1.025) POC Urine Protein Conf NEGATIVE (Negative) Urine Ketones NEGATIVE (NEGATIVE) Urine Nitrite NEGATIVE (NEGATIVE) Urine Bilirubin NEGATIVE (NEGATIVE) Urine Urobilinogen 0.2 (0-1) mg/dL Urine Leukocytes NEGATIVE (NEGATIVE) Urine WBC (Auto) NONE (0-5) /HPF Urine RBC (Auto) NONE (0-2) /HPF U Epithel Cells (Auto) NONE (FEW) /HPF Urine Bacteria (Auto) NONE (NEGATIVE) /HPF Urine RBC NEGATIVE (0-5) Niles/ul Amorphous Crystals FEW A (NEGATIVE) /HPF Urine Mucus (Auto) SLIGHT A (NEGATIVE) /HPF Ur Culture Indicated? NO Urine Glucose NEGATIVE (NEGATIVE) mg/dL - Progress Progress: improved Progress Note: 02/09/22 19:29 37-year-old is evaluated for abdominal pain. Given symptomatic treatment, feeling much better on reevaluation. Has normal white count and hemoglobin. Fairly unremarkable chemistries. CT abdomen pelvis negative for any acute finding. He does have diverticulosis without diverticulitis. With his symptoms of pain and some blood in the stool, clinically it seems like he is developing colitis/diverticulitis, will start him on Augmentin and have him outpatient follow-up. Recommended taking Tylenol and meloxicam as needed. Discussed signs symptoms of worsening needing return to ER which he seems understanding. Counseled pt/family regarding: lab results, diagnosis, need for follow-up, rad results - Departure Departure Disposition: Home Clinical Impression: Colitis, Abdominal pain Condition: Stable Critical Care Time: No Referrals: KENIA ROBERTO [Primary Care Provider] - Follow Up with PCP/3 days Instructions: Severe Abdominal Pain, Adult (DC) Additional Instructions: Take Tylenol as needed. Follow-up with your primary care for reevaluation. Return to ER for worsening abdominal pain, fever, worsening of blood in stool, intractable nausea vomiting etc. Prescriptions: Amox Tr/Potass Clav. 875 mg [Augmentin 875-125 Tablet] 875 mg PO BID #14 tablet PANTOPRAZOLE 40 mg Tablet [Protonix 40MG Tablet] 40 mg PO QAM #30 tab
[2022-02-09] MEDS ORDERED: TORAdol 30 mg Injection ONE (17:37)
[2022-02-09] MEDS ORDERED: Sodium Chloride 0.9% 1000 ML 1,000 ML ONE (17:37)
[2022-02-09] MEDS ORDERED: Zofran 4 MG/2 ML VIAL ONE (17:37)
[2022-02-09 17:39] LABS: Absolute Neutrophil Ct (ANC) 3.33 x10^3/uL (1.4-6.9); Basophil (Absolute #) 0.02 x10^3/uL (0-0.4); Eosinophil % 3.7 % (0.00-5.0); Eosinophil (Absolute #) 0.21 x10^3/uL (0-0.5); Hematocrit 45.3 % (42-50); Hemoglobin 14.9 g/dL (12.5-18.0); Lymphocyte (Absolute #) 1.51 x10^3/uL (1.0-4.6); Lymphocytes % 26.7 % (24.0-44.0); Mean Corpuscular Hemoglobin 30.9 pg (26-32); Mean Corpuscular Hgb Concent. 32.9 g/dL (32-36); Mean Platelet Volume 9.5 fL (7.5-11.0); Monocyte (Absolute #) 0.58 x10^3/uL (0.0-1.3); Monocytes % 10.2 % (0.0-12.0); Neutrophil % 58.8 % (36.0-66.0); Platelet Count 221 x10^3/uL (150-450); Red Blood Count 4.82 x10^6/uL (4.1-5.6); Red Cell Distribution Width 13.2 % (11.5-14.0); White Blood Count 5.7 x10^3/uL (4.0-10.5)
[2022-02-09 17:54] LABS: ALBUMIN 4.5 g/dL (3.5-5.0); ALKALINE PHOSPHATASE 93 U/L (38-126); ANION GAP 11.2 MEQ/L (5-15); BLOOD UREA NITROGEN 11 mg/dL (9-20); CHLORIDE 106 mmol/L (98-107); Calcium 8.9 mg/dL (8.4-10.2); Carbon Dioxide 27 mmol/L (22-30); Creatinine 1 0.75 mg/dL (0.66-1.25); EST GLOMERULAR FILTRATION RATE > 60.0 ML/MIN; Glucose 89 mg/dL (74-106); LIPASE 88 U/L (23-300); Potassium 4.4 mmol/L (3.5-5.1); SGOT/AST 23 U/L (17-59); SGPT/ALT 26 U/L (0-50); SODIUM 139 mmol/L (137-145); Total Protein 7.3 g/dL (6.3-8.2)
[2022-02-09 19:12] VITALS: BP 107/66; PULSE 64
[2022-02-09] MEDS ORDERED: PROTONIX 40 MG IV IV ONE ×2 (19:13→19:14)
[2022-02-09] MEDS ORDERED: TYLENOL EXTRA STRENGTH 500 MG PO STA (19:13)
[2022-02-09] MEDS ORDERED: TYLENOL EXTRA STRENGTH 500 MG ONE (19:14)
[2022-02-09] MEDS ORDERED: Augmentin 875-125 Tablet PO ONE (19:31)
[2022-02-09] MEDS ORDERED: Augmentin 875-125 Tablet ONE (19:33)
[2022-02-09 19:35] VITALS: O2SAT 97
--- NOTE | 2022-02-09 20:38 | XRAY ---
Indication: Abdomen pain, diarrhea, and blood in stool. Crohn's disease. Multiple contiguous axial images obtained through the abdomen and pelvis without contrast. Comparison: None Lung bases are clear. Heart not enlarged. Noncontrasted stomach and bowel loops appear nonobstructed with normal appendix. Minimal descending and sigmoid diverticulosis without diverticulitis. No free fluid/air. Right kidney demonstrates nonobstructing punctate calculus. Remaining liver, gallbladder, pancreas, spleen, adrenal glands, kidneys, ureters, bladder, and aorta are unremarkable for noncontrast exam. Osseous structures intact. No ventral or inguinal hernias. Impression: 1. Minimal colonic diverticulosis and nonobstructing right renal punctate calculus. 2. Remaining CT abdomen/pelvis without contrast exam is negative. Comment: Preliminary interpretation made by [facility]. No critical discrepancy.
== END 2022-02-09 19:39 | disposition home or self-care (01) ==
LOC: ED 15:47
DX: K52.9 Noninfective gastroenteritis and colitis, unspecified (principal); R10.33 Periumbilical pain; Z79.899 Other long term (current) drug therapy; Z28.310 Unvaccinated for COVID-19; Z72.0 Tobacco use
CPT/HCPCS: 36000; 36415; 74176; 80053; 81015; 83690; 85025; 96360; 96374; 96375; 99284; J1885; J2405; A9270-GY

== ENCOUNTER 2022-10-26 22:16 | Emergency (ER) | payer OTHER ==
[2022-10-26 22:30] VITALS: TEMP 98.3
[2022-10-26] MEDS ORDERED: Diflucan 100 MG PO ONE (22:45)
[2022-10-26] MEDS ORDERED: MARY'S MOUTHWASH PO STA (22:45)
--- NOTE | 2022-10-26 22:49 | ERPHSYRPT ---
- History of Present Illness Time Seen by Provider: 10/26/22 22:46 Source: patient Exam Limitations: no limitations Patient Subjective Stated Complaint: pt reports thrush to the mouth with some discomfort Triage Nursing Assessment: pt is aox3, afebrile, pupils perrl, resps easy and non labored, radial pulses strong and equal, cap refill < 2 seconds, pt skin pink warm dry. no lesions or rash noted to the mouth. Physician History: pt reports thrush to the mouth with some discomfort. no fever, no swallowing problem Timing/Duration: today Associated Symptoms: denies symptoms Allergies/Adverse Reactions: azithromycin [From Zithromax Z-Cody] Allergy (Mild, Verified 02/09/22 16:35) Diarrhea metronidazole [From Flagyl] Allergy (Unknown, Verified 02/09/22 16:35) Metronidazole HCl [From Flagyl] Allergy (Unknown, Verified 02/09/22 16:35) Home Medications: Meloxicam [Mobic] 1 ea DAILY 02/09/22 [History] Hx Tetanus, Diphtheria Vaccination/Date Given: (unknown) Hx Influenza Vaccination/Date Given: No Hx Pneumococcal Vaccination/Date Given: No Travel Risk - International Travel Have you traveled outside of the country in past 3 weeks: No - Coronavirus Screening Are you exhibiting any of the following symptoms?: No Close contact with a COVID-19 positive Pt in past 14-21 Days: No - Vaccine Status Have you recieved a Covid-19 vaccination: No - Review of Systems Constitutional: No Symptoms Eyes: No Symptoms Ears, Nose, & Throat: Mouth Pain Respiratory: No Symptoms Cardiac: No Symptoms Abdominal/Gastrointestinal: No Symptoms Genitourinary Symptoms: No Symptoms Musculoskeletal: No Symptoms - Past Medical History Pertinent Past Medical History: Yes Neurological History: No Pertinent History ENT History: No Pertinent History Cardiac History: Arrhythmia Respiratory History: Asthma, Bronchitis, Pneumonia Endocrine Medical History: No Pertinent History Musculoskeletal History: No Pertinent History GI Medical History: No Pertinent History History: No Pertinent History Psycho-Social History: No Pertinent History Male Reproductive Disorders: No Pertinent History Other Medical History: HEART "SKIPS A BEAT EVERY ONCE IN A WHILE" - Past Surgical History Past Surgical History: Yes Musculoskeletal: Orthopedic Surgery Other Surgical History: foot surgery - Social History Smoking Status: Current every day smoker How long have you smoked: 20 yrs Exposure to second hand smoke: Yes Drug Use: none Patient Lives Alone: Yes - Nursing Vital Signs Nursing Vital Signs: Initial Vital Signs Temperature 98.3 F 10/26/22 22:20 Pulse Rate 75 10/26/22 22:20 Respiratory Rate 20 10/26/22 22:20 Blood Pressure 141/81 10/26/22 22:20 O2 Sat by Pulse Oximetry 98 10/26/22 22:20 Pain Scale Pain Intensity 0 - Physical Exam General Appearance: no apparent distress, alert Eye Exam: PERRL/EOMI, eyes nml inspection Ears, Nose, Throat Exam: normal ENT inspection, TMs normal, pharynx normal, moist mucous membranes, other (extensive thrush on tongue) Neck Exam: normal inspection, non-tender, supple, full range of motion Respiratory Exam: normal breath sounds, lungs clear, No respiratory distress Cardiovascular Exam: regular rate/rhythm, normal heart sounds, normal peripheral pulses Gastrointestinal/Abdomen Exam: soft, normal bowel sounds, No tenderness, No mass Back Exam: normal inspection, normal range of motion, No CVA tenderness, No vertebral tenderness Extremity Exam: normal inspection, normal range of motion, pelvis stable Neurologic Exam: alert, oriented x 3, cooperative, normal mood/affect, nml cere bellar function, nml station & gait, sensation nml, No motor deficits Skin Exam: normal color, warm, dry, No rash Lymphatic Exam: No adenopathy SpO2: 98 - Course Nursing assessment & vital signs reviewed: Yes - Progress Progress: improved Counseled pt/family regarding: diagnosis, need for follow-up Medical Desision Making - Risk of complications Minimal Risk: Minimal risk of morbidity - Departure Departure Disposition: Home Clinical Impression: Oral pharyngeal candidiasis Condition: Stable Critical Care Time: No Referrals: KENIA ROBERTO [Primary Care Provider] - Follow up/PCP as directed Instructions: Thrush (DC) Additional Instructions: Discharge/Care Plan ROSEMARIE TOURE was seen on 10/26/22 in the Emergency Room. The patient was counseled regarding Diagnosis,Lab results, Imaging studies, need for follow up and when to return to the Emergency Room. Prescriptions given: Discharge Note I have spoken with the patient and/or caregivers. I have explained the patient's condition, diagnosis and treatment plan based on the information available to me at this time. I have answered the patient's and/or caregiver's questions and addressed any concerns. The patient and/or caregivers have as good understanding of the patient's diagnosis, condition and treatment plan as can be expected at this point. The vital signs have been stable. The patient's condition is stable and appropriate for discharge from the emergency department. The patient will pursue further outpatient evaluation with the primary care physician or other designated or consulting physician as outlined in the discharge instructions. The patient and/or caregivers are agreeable to this plan of care and follow-up instructions have been explained in detail. The patient and/or caregivers have received these instruction. The patient/and or caregivers are aware that any significant change in condition or worsening of symptoms should prompt an immediate return to this or the closest emergency department or call 911. ROSEMARIE TOURE was seen on 10/26/22 n the Emergency Room. At that time you were treated for an emergent condition, during your visit Laboratory, Radiology and/or other procedures may have been ordered. It is very important that you follow-up with your Primary Care Physician KENIA ROBERTO within the next 24-48 hours to review your Emergency Room visit and the final results of testing that was ordered. Some test results such as Urine Cultures, Blood Cultures, and other cultures if ordered will not be finalized for 24-48 hours. If you do not have a Primary Care Provider please call the medical records department at [phone] ext [phone] to obtain a copy of your results or you may sign into our patient portal to obtain these results by visiting us @ [email or web address] [facility]! and completing the following steps: 1. Click on the Patient Portal link 2. Click the Patient Self Enrollment Link to complete the enrollment form and entering your 3. Once the enrollment form is completed you will receive an email with a temporary ID and password at the email address you provided. 4. Next choose a user name and password. Your user name must be at least 4 characters long and your password must be at least 4 characters long. 5. Choose a security question from the list and provide your answer to the question. If you already have signed into the Health Portal you may access your Health Care Information 02/09 by the following steps: 1. Login to our website @ [email or web address] [facility] [employer]! 2. Enter your original user name and password. FAQS The [facility] Health Portal is an online tool that contains your Lab Results, Radiology Reports, Visit History, Discharge Instructions and Health Summary Lab and Radiology Results will not be available for 72 hours on the portal. The Portal is a secure site, passwords are encryted and URLs are re-written so they cannot be copied and pasted. You and authorized family members are the only ones who can access your Portal. Also there is a timeout feature that protects your information if you leave the Portal page open. If you have technical difficulty please use the Contact Us link on the page this will allow you to submit any questions you have regarding the Portal or you may contact the Medical Record Department at [phone] ext [phone]. Prescriptions: Fluconazole 100 mg [Diflucan 100 MG] 100 mg PO DAILY #3 tablet
[2022-10-26] MEDS ORDERED: MARY'S MOUTHWASH PO ONE (23:00)
[2022-10-26 23:59] VITALS: BP 123/60; PULSE 60; RESP 16; O2SAT 97
== END 2022-10-27 00:07 | disposition home or self-care (01) ==
LOC: ED 22:16
DX: B37.0 Candidal stomatitis (principal); Z79.899 Other long term (current) drug therapy; Z28.310 Unvaccinated for COVID-19; Z72.0 Tobacco use
CPT/HCPCS: 99281; A9270-GY

== ENCOUNTER 2023-12-06 04:02 | Emergency (ER) | payer OTHER ==
[2023-12-06 04:18] VITALS: TEMP 98.7
[2023-12-06] MEDS: Sodium Chloride 0.9% 1000 ML 1,000 ML IV STA (04:39)
[2023-12-06] MEDS: Zofran 4 MG/2 ML VIAL IV ONE (04:40)
[2023-12-06 04:49] VITALS: O2SAT 92
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
[2023-12-06] MEDS ORDERED: Adacel Vial IM ONE (05:20)
[2023-12-06] MEDS: Adacel Vial IM ONE (05:21)
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
[2023-12-06 06:31] VITALS: BP 118/93; PULSE 113; RESP 18
[2023-12-06 06:58] LABS: Amphetamine,Urine NEGATIVE (NEGATIVE); Barbiturate,Urine NEGATIVE (NEGATIVE); Benzodiazepine,Urine NEGATIVE (NEGATIVE); Cocaine,Urine NEGATIVE (NEGATIVE); Methadone,Urine NEGATIVE (NEGATIVE); Opiate,Urine NEGATIVE (NEGATIVE); PCP,Urine NEGATIVE (NEGATIVE); THC,Urine NEGATIVE (NEGATIVE)
== END 2023-12-06 06:37 | disposition home or self-care (01) ==
LOC: ED 04:02
DX: Z02.89 Encounter for other administrative examinations (principal); F10.129 Alcohol abuse with intoxication, unspecified; S01.511A Laceration without foreign body of lip, initial encounter; S00.83XA Contusion of other part of head, initial encounter; S00.03XA Contusion of scalp, initial encounter; Y04.0XXA Assault by unarmed brawl or fight, initial encounter; I10 Essential (primary) hypertension; Z79.899 Other long term (current) drug therapy; Z72.0 Tobacco use; Z23 Encounter for immunization
CPT/HCPCS: 12011; 70450; 70486; 80307; 90471; 90715; 93041; 99284

== ENCOUNTER 2024-02-22 23:24 | Emergency (ER) | payer OTHER ==
[2024-02-22 23:35] VITALS: RESP 18; TEMP 97.5; O2SAT 98
[2024-02-22] MEDS: TORAdol 30 mg Injection IV ONE (23:44)
[2024-02-22] MEDS ORDERED: TORAdol 30 mg Injection ONE (23:44)
[2024-02-22] MEDS ORDERED: Zofran 4 MG/2 ML VIAL ONE (23:50)
[2024-02-22] MEDS: Zofran 4 MG/2 ML VIAL IV ONE (23:51)
[2024-02-22 23:52] LABS: Absolute Neutrophil Ct (ANC) 2.18 x10^3/uL (1.78-5.38); Basophil (Absolute #) 0.05 x10^3/uL (0.01-0.08); Eosinophil % 4.2 % (0.8-7.0); Hematocrit 41.4 % (40.1-51.0); Hemoglobin 14.4 g/dL (13.7-17.5); IMMATURE GRAN # 0.01 x10^3u/L (0.001-0.031); IMMATURE GRAN % 0.2 % (0.001-0.429); Lymphocyte (Absolute #) 1.76 x10^3/uL (1.32-3.57); Lymphocytes % 36.9 % (21.8-53.1); Mean Cell Volume 87.5 fL (79.0-92.2); Mean Corpuscular Hemoglobin 30.4 pg (25.7-32.2); Mean Corpuscular Hgb Concent. 34.8 g/dL (32.3-36.5); Mean Platelet Volume 9.1 fL (9.4-12.4); Monocyte (Absolute #) 0.57 x10^3/uL (0.30-0.82); Monocytes % 11.9 % (5.3-12.2); Neutrophil % 45.8 % (34.0-67.9); Platelet Count 249 x10^3/uL (163-337); Red Blood Count 4.73 x10^6/uL (4.63-6.08); Red Cell Distribution Width 12.7 % (11.6-14.4); White Blood Count 4.8 x10^3/uL (4.23-9.07)
[2024-02-22 23:53] LABS: Appearance Clear (Clear); Bacteria None Seen /HPF (None Seen); Bilirubin Negative (Negative); Blood Negative (Negative); Epithelial Cells None Seen /HPF (None Seen); Glucose, Urine Negative (Negative); Hyaline Casts NONE SEEN /LPF (0-2); Ketones Trace (Negative); Leukocyte Esterase Negative (Negative); Nitrite Negative (Negative); Ph 5.5 (4.6-8.0); Protein,Urine Dip Negative (Negative); RBC 0-2 /HPF (0-5); Urobilinogen 0.2 mg/dL (0.2); WBC 0-2 /HPF (0-5)
--- NOTE | 2024-02-23 00:05 | ERPHSYRPT ---
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 It radiates around to his right groin area. It is pretty consistent pain. Movement and flexion at the waist seems to make it worse. He has not had any dysuria. He has not no fever or chills. He has not had any abdominal surgeries. He has not had kidney stones in the past but says that they run in his family.The pain started after he did a 36-hour fast. He then ate some fruits and vegetables and lay down for a while. When he woke up he was having the pain. Quality: aching, pressure, stabbing Allergies/Adverse Reactions: azithromycin [From Zithromax Z-Cody] Allergy (Mild, Verified 02/22/24 23:26) Diarrhea metronidazole [From Flagyl] Allergy (Unknown, Verified 02/22/24 23:26) Metronidazole HCl [From Flagyl] Allergy (Unknown, Verified 02/22/24 23:26) Home Medications: No Reportable Medications [No Reported Medications] 02/22/24 [History] Hx Tetanus, Diphtheria Vaccination/Date Given: Yes (2023) Hx Influenza Vaccination/Date Given: No Hx Pneumococcal Vaccination/Date Given: No Travel Risk - International Travel Have you traveled outside of the country in past 3 weeks: No - Emerging Infectious Disease Are you exhibiting symptoms associated with any current EIDs: No - Review of Systems Constitutional: No Symptoms Eyes: No Symptoms Respiratory: No Symptoms Neurological: No Symptoms All Other Systems: Reviewed and Negative - Past Medical History Pertinent Past Medical History: No Neurological History: No Pertinent History ENT History: No Pertinent History Cardiac History: Hypertension Respiratory History: No Pertinent History Endocrine Medical History: No Pertinent History Musculoskeletal History: Arthritis GI Medical History: No Pertinent History History: No Pertinent History Psycho-Social History: No Pertinent History Male Reproductive Disorders: No Pertinent History Other Medical History: HEART "SKIPS A BEAT EVERY ONCE IN A WHILE" - Past Surgical History Past Surgical History: Yes Musculoskeletal: Orthopedic Surgery Other Surgical History: Foot surgery for a splinter removal - Social History Smoking Status: Smoker, status unknown How long have you smoked: 20 yrs Exposure to second hand smoke: Yes Drug Use: none, marijuana, methamphetamines Patient Lives Alone: Yes - Social Determinants of Health Will the patient participate in the screening: Declined to provide - Nursing Vital Signs Nursing Vital Signs: Initial Vital Signs Temperature 97.5 F 02/22/24 23:28 Pulse Rate 76 02/22/24 23:28 Respiratory Rate 18 02/22/24 23:28 Blood Pressure 132/82 02/22/24 23:28 O2 Sat by Pulse Oximetry 97 02/22/24 23:28 Pain Scale Pain Intensity [Right Lower 8 Back] Pain Intensity 4 - Physical Exam General Appearance: no apparent distress Eye Exam: PERRL/EOMI Respiratory Exam: normal breath sounds, No chest tenderness Cardiovascular Exam: regular rate/rhythm, normal heart sounds Gastrointestinal/Abdomen Exam: soft, normal bowel sounds, No tenderness, No distention, No mass Back Exam: normal inspection, normal range of motion Extremity Exam: normal inspection Neurologic Exam: alert, oriented x 3, cooperative Skin Exam: normal color, warm, dry SpO2: 98 Ordered Tests: Active Orders 24 hr Category Date Time Status ABDOMEN AND PELVIS W/0 CONTRAS [CT] Stat Exams 02/22/24 23:38 Completed CBC W DIFF Stat Lab 02/22/24 23:45 Completed CMP Stat Lab 02/22/24 23:45 Completed UA W/RFX UR CULTURE Stat Lab 02/22/24 23:39 Completed Medication Summary Discontinued Medications Generic Name Dose Route Start Last Admin Trade Name Jeferson PRN Reason Stop Dose Admin Ketorolac Tromethamine 30 mg 02/22/24 23:42 02/22/24 23:44 Ketorolac Tromethamine 30 Mg/Ml Inj IV 02/22/24 23:43 30 mg STAT ONE Administration Ketorolac Tromethamine Confirm 02/22/24 23:44 Ketorolac Tromethamine 30 Mg/Ml Inj Administered 02/22/24 23:45 Dose 30 mg .ROUTE .STK-MED ONE Ondansetron HCl 4 mg 02/22/24 23:43 02/22/24 23:51 Ondansetron Hcl 4 Mg/2 Ml Vial IV 02/22/24 23:44 4 mg STAT ONE Administration Ondansetron HCl Confirm 02/22/24 23:50 Ondansetron Hcl 4 Mg/2 Ml Vial Administered 02/22/24 23:51 Dose 4 mg .ROUTE .STK-MED ONE Lab/Rad Data: Laboratory Result Diagrams 02/22/24 23:45 02/22/24 23:45 Laboratory Results 02/22/24 02/22/24 02/22/24 Range/Units 23:45 23:45 23:39 WBC 4.8 (4.23-9.07) x10^3/uL RBC 4.73 (4.63-6.08) x10^6/uL Hgb 14.4 (13.7-17.5) g/dL Hct 41.4 (40.1-51.0) % MCV 87.5 (79.0-92.2) fL MCH 30.4 (25.7-32.2) pg MCHC 34.8 (32.3-36.5) g/dL RDW 12.7 (11.6-14.4) % Plt Count 249 (163-337) x10^3/uL MPV 9.1 L (9.4-12.4) fL Gran % 45.8 (34.0-67.9) % Immature Gran % (Auto) 0.2 (0.001-0.429) % Nucleat RBC Rel Count 0.0 (0.00-0.2) % Eos # (Auto) 0.20 (0.04-0.54) x10^3/uL Immature Gran # (Auto) 0.01 (0.001-0.031) x10^3u/L Absolute Lymphs (auto) 1.76 (1.32-3.57) x10^3/uL Absolute Monos (auto) 0.57 (0.30-0.82) x10^3/uL Absolute Nucleated RBC 0.00 (0.00-0.012) x10^3u/L Lymphocytes % 36.9 (21.8-53.1) % Monocytes % 11.9 (5.3-12.2) % Eosinophils % 4.2 (0.8-7.0) % Basophils % 1.0 (0.2-1.2) % Absolute Granulocytes 2.18 (1.78-5.38) x10^3/uL Basophils # 0.05 (0.01-0.08) x10^3/uL Sodium 138 (135-145) mmol/L Potassium 4.1 (3.5-5.1) mmol/L Chloride 106 (98-107) mmol/L Carbon Dioxide 22 (22-30) mmol/L Anion Gap 13.6 (5-15) MEQ/L BUN 15 (9-20) mg/dL Creatinine 0.92 (0.66-1.25) mg/dL Estimated GFR 107.8 ML/MIN Glucose 99 (74-106) mg/dL Calcium 9.8 (8.4-10.2) mg/dL Total Bilirubin 0.40 (0.2-1.3) mg/dL AST 44 (17-59) U/L ALT 39 (0-50) U/L Alkaline Phosphatase 70 (38-126) U/L Serum Total Protein 7.1 (6.3-8.2) g/dL Albumin 4.5 (3.5-5.0) g/dL Urine Color Yellow (Yellow) Urine Appearance Clear (Clear) Urine pH 5.5 (4.6-8.0) Ur Specific [place] 1.020 (1.005-1.030) Urine Protein Negative (Negative) Urine Glucose (UA) Negative (Negative) mg/dL Urine Ketones Trace A (Negative) Urine Blood Negative (Negative) Urine Nitrite Negative (Negative) Urine Bilirubin Negative (Negative) Urine Urobilinogen 0.2 (0.2) mg/dL Ur Leukocyte Esterase Negative (Negative) U Hyaline Cast (Auto) NONE SEEN (0-2) /LPF Urine Microscopic RBC 0-2 (0-5) /HPF Urine Microscopic WBC 0-2 (0-5) /HPF Ur Epithelial Cells None Seen (None Seen) /HPF Urine Bacteria None Seen (None Seen) /HPF Urine Culture Reflexed NO (NO) - Progress Progress: improved Progress Note: On the differential is kidney stone, pyelonephritis, appendicitis less likely, Muscle strain. The CT was done it showed no stone and no appendicitis. I am starting to think this may be more of a muscle skeletal issue.I am going to discharge him to home in stable condition. I will give him some toradol and he is asked for a work note 02/22/24 23:42 02/23/24 00:37 02/23/24 00:38 Medical Desision Making - Diagnostic Testing Radiological Interpretation: Discussed w/ radiologist - Risk of complications Minimal Risk: Minimal risk of morbidity - Departure Departure Disposition: Home Clinical Impression: Low back pain Condition: Stable Critical Care Time: No Instructions: Low Back Pain (DC)
[2024-02-23 00:07] LABS: ALBUMIN 4.5 g/dL (3.5-5.0); ANION GAP 13.6 MEQ/L (5-15); BILIRUBIN,TOTAL 0.4 mg/dL (0.2-1.3); Calcium 9.8 mg/dL (8.4-10.2); Creatinine 1 0.92 mg/dL (0.66-1.25); EST GLOMERULAR FILTRATION RATE 107.8 ML/MIN; Potassium 4.1 mmol/L (3.5-5.1); Total Protein 7.1 g/dL (6.3-8.2)
--- NOTE | 2024-02-23 00:27 | XRAY ---
CLINICAL HISTORY: r flank pain COMPARISON: None. TECHNIQUE: Contiguous axial images were obtained from the level of the diaphragm to the pubic symphysis without intravenous or oral contrast. Coronal and sagittal reconstructions were likewise performed and indicated to increase the sensitivity for detecting clinically relevant pathology. CT scan was performed according to ALARA (as low as reasonable achievable). FINDINGS: The visualized lung bases are clear. Evaluation of the abdominal and pelvic visceral organs is limited without intravenous contrast. The unenhanced liver, spleen, pancreas, and adrenal glands are grossly unremarkable. Few tiny calcifications are noted in the spleen. The gallbladder is present. The kidneys are normal in size and attenuation without obvious calcification. There is no hydronephrosis or perinephric stranding. Right kidney show nonobstructing calculus of size 7 mm in upper calyx. The ureters are normal in caliber. No adenopathy or fluid collections are seen. No evidence of focal or diffuse bowel wall thickening or evidence of bowel obstruction is seen. The appendix is visualized in the right lower quadrant and appears within normal limits. The aorta is normal in caliber. The urinary bladder is normal in contour. Pelvic viscera are grossly unremarkable. No aggressive appearing osseous lesions are identified. Multiple small uncomplicated colonic diverticulosis IMPRESSION: Right kidney show nonobstructing calculus of size 7 mm in upper calyx. Multiple small uncomplicated colonic diverticulosis Electronically Signed by: Wenceslao Silva MD. (02/23/2024 00:22:30 EST)
[2024-02-23 00:39] VITALS: BP 119/72; PULSE 64
== END 2024-02-23 00:44 ==
LOC: ED 23:24
DX: M54.50 Low back pain, unspecified (principal); R10.9 Unspecified abdominal pain; I10 Essential (primary) hypertension
CPT/HCPCS: 36415; 74176; 80053; 81001; 85025; 96374; 96375; 99284; J1885; J2405

== ENCOUNTER 2024-02-29 13:04 | Emergency (ER) | payer OTHER ==
[2024-02-29 13:28] VITALS: RESP 16; TEMP 100
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
[2024-02-29 13:55] LABS: Appearance Turbid (Clear); Bacteria None Seen /HPF (None Seen); Bilirubin Negative (Negative); Blood Negative (Negative); Epithelial Cells None Seen /HPF (None Seen); Glucose, Urine Negative (Negative); Hyaline Casts NONE SEEN /LPF (0-2); Ketones Negative (Negative); Leukocyte Esterase Negative (Negative); Nitrite Negative (Negative); Ph 7.5 (4.6-8.0); Protein,Urine Dip Negative (Negative); RBC 0-2 /HPF (0-5); Urobilinogen 0.2 mg/dL (0.2); WBC 0-2 /HPF (0-5)
[2024-02-29] MEDS ORDERED: TORAdol 30 mg Injection ONE (14:00)
[2024-02-29] MEDS: TORAdol 30 mg Injection IM ONE (14:05)
[2024-02-29 14:09] LABS: Absolute Neutrophil Ct (ANC) 5.12 x10^3/uL (1.78-5.38); BASOPHIL % 0.5 % (0.2-1.2); Basophil (Absolute #) 0.03 x10^3/uL (0.01-0.08); Eosinophil % 2.6 % (0.8-7.0); Eosinophil (Absolute #) 0.16 x10^3/uL (0.04-0.54); Hematocrit 42.8 % (40.1-51.0); Hemoglobin 14.3 g/dL (13.7-17.5); IMMATURE GRAN # 0.01 x10^3u/L (0.001-0.031); IMMATURE GRAN % 0.2 % (0.001-0.429); Lymphocytes % 4.8 % (21.8-53.1); Mean Cell Volume 91.1 fL (79.0-92.2); Mean Corpuscular Hemoglobin 30.4 pg (25.7-32.2); Mean Corpuscular Hgb Concent. 33.4 g/dL (32.3-36.5); Monocyte (Absolute #) 0.58 x10^3/uL (0.30-0.82); Monocytes % 9.4 % (5.3-12.2); Neutrophil % 82.5 % (34.0-67.9); Platelet Count 214 x10^3/uL (163-337); White Blood Count 6.2 x10^3/uL (4.23-9.07)
[2024-02-29] MEDS: TORAdol 30 mg Injection IV ONE (14:10)
[2024-02-29 14:20] LABS: ALBUMIN 4.5 g/dL (3.5-5.0); ANION GAP 12.8 MEQ/L (5-15); BILIRUBIN,TOTAL 0.3 mg/dL (0.2-1.3); Calcium 9.3 mg/dL (8.4-10.2); Creatinine 1 0.89 mg/dL (0.66-1.25); EST GLOMERULAR FILTRATION RATE 111.1 ML/MIN; Potassium 4.2 mmol/L (3.5-5.1); Total Protein 7.1 g/dL (6.3-8.2)
[2024-02-29 14:41] LABS: INFLUENZA A NEGATIVE (NEGATIVE); INFLUENZA B NEGATIVE (NEGATIVE); RESPIRATORY SYNCTIAL VIRUS NEGATIVE (NEGATIVE)
[2024-02-29 14:45] LABS: SARS-CoV-2 Xpert Express POSITIVE (NEGATIVE)
[2024-02-29 15:26] LABS: Slide Review 1 YES
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
[2024-02-29] MEDS ORDERED: TYLENOL EXTRA STRENGTH 500 MG ONE (17:11)
[2024-02-29] MEDS: TYLENOL EXTRA STRENGTH 500 MG PO STA (17:12)
[2024-02-29 17:32] VITALS: BP 134/72; PULSE 84; O2SAT 100
== END 2024-02-29 17:36 | disposition home or self-care (01) ==
LOC: ED 13:04
DX: U07.1 COVID-19 (principal); N20.0 Calculus of kidney; K57.90 Diverticulosis of intestine, part unspecified, without perforation or abscess without bleeding; M54.50 Low back pain, unspecified; R07.9 Chest pain, unspecified; R51.9 Headache, unspecified; R50.9 Fever, unspecified; I10 Essential (primary) hypertension
CPT/HCPCS: 0241U; 36415; 74176; 80053; 81001; 82150; 83605; 83690; 83880; 84484; 85025; 87651; 93005; 96374; 99285; 99284; J1885; A9270-GY

== ENCOUNTER 2024-03-02 15:34 | Emergency (ER) | payer OTHER ==
--- NOTE | 2024-03-02 15:48 | ERPHSYRPT ---
- History of Present Illness Time Seen by Provider: 03/02/24 15:47 Historian: patient, family Exam Limitations: no limitations Patient Subjective Stated Complaint: pt here for pain to chest, left side, cough, was postive for covid last friday, Triage Nursing Assessment: pt alert, walked in, face mask in place, resp easy, skin w/d/p. chest clear, no edema noted Physician History: This is a 39-year-old white male patient that arrives by private vehicle who uses the [facility] system for his medical issues and presents with 2-day history of left anterior chest pain without radiation. The patient was seen in our emergency department 2 days ago and diagnosed with COVID 19 infection. He still has a cough in the left anterior chest wall has persistent pain present. Patient has never been diagnosed with myocardial infarction or coronary artery disease. His heart score is less than 4. Patient did not take any n itroglycerin or aspirin prior to arrival. He arrives with a fever of 100.4 F Timing/Duration: day(s) (2) Activities at Onset: none Quality: aching Location: other (Left anterior chest) Chest Pain Radiation: no radiation Severity of Pain-Max: mild Severity of Pain-Current: mild Modifying Factors: Improves With: coughing (Mild) Associated Symptoms: cough, fever Nitro Today/Relief: no nitro taken today Aspirin Treatment Today: 81 mg x 4, provided by ED Allergies/Adverse Reactions: azithromycin [From Zithromax Z-Cody] Allergy (Mild, Verified 03/02/24 15:37) Diarrhea metronidazole [From Flagyl] Allergy (Unknown, Verified 03/02/24 15:37) Metronidazole HCl [From Flagyl] Allergy (Unknown, Verified 03/02/24 15:37) Hx Tetanus, Diphtheria Vaccination/Date Given: Yes (2023) Hx Influenza Vaccination/Date Given: No Hx Pneumococcal Vaccination/Date Given: No Immunizations Up to Date: Yes Travel Risk - International Travel Have you traveled outside of the country in past 3 weeks: No - Emerging Infectious Disease Are you exhibiting symptoms associated with any current EIDs: Yes Symptoms: Cough: New Onset, Headaches/Body Aches/ Comment: covid postive friday - Review of Systems Constitutional: Fever Eyes: No Symptoms Ears, Nose, & Throat: No Symptoms Respiratory: Cough Cardiac: Chest Pain (Left anterior) Abdominal/Gastrointestinal: No Symptoms Genitourinary Symptoms: No Symptoms Musculoskeletal: No Symptoms Skin: No Symptoms Neurological: No Symptoms Psychological: No Symptoms Endocrine: No Symptoms Hematologic/Lymphatic: No Symptoms Immunological/Allergic: No Symptoms All Other Systems: Reviewed and Negative - Past Medical History Pertinent Past Medical History: No Neurological History: No Pertinent History ENT History: No Pertinent History Cardiac History: Hypertension Respiratory History: No Pertinent History Endocrine Medical History: No Pertinent History Musculoskeletal History: Arthritis GI Medical History: No Pertinent History History: No Pertinent History Psycho-Social History: No Pertinent History Male Reproductive Disorders: No Pertinent History Other Medical History: HEART "SKIPS A BEAT EVERY ONCE IN A WHILE" - Past Surgical History Past Surgical History: Yes Musculoskeletal: Orthopedic Surgery Other Surgical History: Foot surgery for a splinter removal ,covid 01/28/2025 - Social History Smoking Status: Former smoker How long have you smoked: 20 yrs Exposure to second hand smoke: No Drug Use: none, marijuana, methamphetamines Patient Lives Alone: Yes - Social Determinants of Health Will the patient participate in the screening: Declined to provide Comment: pt lives in a barn but staes has head - Nursing Vital Signs Nursing Vital Signs: Initial Vital Signs Pulse Rate 89 03/02/24 15:37 Respiratory Rate 20 03/02/24 15:37 Blood Pressure 123/75 03/02/24 15:37 O2 Sat by Pulse Oximetry 96 03/02/24 15:37 Pain Scale Pain Intensity 0 - Physical Exam General Appearance: no apparent distress, alert, anxiety Eye Exam: PERRL/EOMI, post op pupil defect (L) Ears, Nose, Throat Exam: normal ENT inspection, moist mucous membranes Neck Exam: normal inspection, non-tender, supple, full range of motion Respiratory Exam: normal breath sounds, chest tenderness (Mild left anterior chest), lungs clear, airway intact, No respiratory distress Cardiovascular Exam: regular rate/rhythm, normal heart sounds, normal peripheral pulses Gastrointestinal/Abdomen Exam: soft, normal bowel sounds, No tenderness Rectal Exam: not done Back Exam: normal inspection, normal range of motion, No CVA tenderness, No vertebral tenderness Extremity Exam: normal inspection, normal range of motion, pelvis stable Neurologic Exam: alert, oriented x 3, cooperative, clinical data specialist II-XII nml as tested, normal mood/affect, nml cerebellar function, nml station & gait, sensation nml Skin Exam: normal color, warm, dry Lymphatic Exam: No adenopathy SpO2 Interpretation: normal O2 Delivery: Room Air - Course Nursing assessment & vital signs reviewed: Yes EKG Interpreted by Me: RATE (86), Sinus Rhythm, NORMAL AXIS, NORMAL INTERVALS, NORMAL QRS, Other (QTc 376. No acute ischemia. No significant change when compared to twelve-lead EKG dated 09/04/2021.) Ordered Tests: Active Orders 24 hr Category Date Time Status EKG-ER Only STAT Care 03/02/24 16:05 Active IV Insertion STAT Care 03/02/24 16:05 Active Pulse Oximetry (ED) STAT Care 03/02/24 16:05 Active CHEST 1 VIEW (PORTABLE) Stat Exams 03/02/24 16:57 Taken CBC W DIFF Stat Lab 03/02/24 16:05 Completed CMP Stat Lab 03/02/24 16:05 Completed D-DIMER QUANTITATIVE Stat Lab 03/02/24 16:05 Completed MAG [MAGNESIUM] Stat Lab 03/02/24 16:05 Completed TROPONIN Q4H Lab 03/02/24 16:05 Completed TROPONIN Q4H Lab 03/02/24 20:15 Ordered TROPONIN Q4H Lab 03/03/24 00:15 Ordered Medication Summary Discontinued Medications Generic Name Dose Route Start Last Admin Trade Name Freq PRN Reason Stop Dose Admin Acetaminophen Confirm 03/02/24 16:13 Acetaminophen 325 Mg Tablet Administered 03/02/24 16:14 Dose 650 mg .ROUTE .STK-MED ONE Acetaminophen 650 mg 03/02/24 16:19 03/02/24 16:50 Acetaminophen 325 Mg Tablet PO 03/02/24 16:20 650 mg STAT ONE Administration Aspirin 324 mg 03/02/24 16:05 03/02/24 16:51 Aspirin 81 Mg Tab.Chew PO 03/02/24 16:06 324 mg STAT ONE Administration Aspirin Confirm 03/02/24 16:11 Aspirin 81 Mg Tab.Chew Administered 03/02/24 16:12 Dose 324 mg .ROUTE .STK-MED ONE Ibuprofen Confirm 03/02/24 16:13 Ibuprofen 600 Mg Tablet Administered 03/02/24 16:14 Dose 600 mg .ROUTE .STK-MED ONE Ibuprofen 600 mg 03/02/24 16:19 03/02/24 16:50 Ibuprofen 600 Mg Tablet PO 03/02/24 16:20 600 mg STAT ONE Administration Lab/Rad Data: Laboratory Result Diagrams 03/02/24 16:05 03/02/24 16:05 Laboratory Results 03/02/24 03/02/24 03/02/24 Range/Units 16:05 16:05 16:05 WBC (4.23-9.07) x10^3/uL RBC (4.63-6.08) x10^6/uL Hgb (13.7-17.5) g/dL Hct (40.1-51.0) % MCV (79.0-92.2) fL MCH (25.7-32.2) pg MCHC (32.3-36.5) g/dL RDW (11.6-14.4) % Plt Count (163-337) x10^3/uL MPV (9.4-12.4) fL Gran % (34.0-67.9) % Immature Gran % (Auto) (0.001-0.429) % Nucleat RBC Rel Count (0.00-0.2) % Eos # (Auto) (0.04-0.54) x10^3/uL Immature Gran # (Auto) (0.001-0.031) x10^3u/L Absolute Lymphs (auto) (1.32-3.57) x10^3/uL Absolute Monos (auto) (0.30-0.82) x10^3/uL Absolute Nucleated RBC (0.00-0.012) x10^3u/L Lymphocytes % (21.8-53.1) % Monocytes % (5.3-12.2) % Eosinophils % (0.8-7.0) % Basophils % (0.2-1.2) % Absolute Granulocytes (1.78-5.38) x10^3/uL Basophils # (0.01-0.08) x10^3/uL D-Dimer < 0.19 (0.0-0.50) mg/L Sodium 137 (135-145) mmol/L Potassium 4.3 (3.5-5.1) mmol/L Chloride 103 (98-107) mmol/L Carbon Dioxide 25 (22-30) mmol/L Anion Gap 13.4 (5-15) MEQ/L BUN 16 (9-20) mg/dL Creatinine 1.02 (0.66-1.25) mg/dL Estimated GFR 95.3 ML/MIN Glucose 92 (74-106) mg/dL Calcium 9.3 (8.4-10.2) mg/dL Magnesium 2.0 (1.6-2.3) mg/dL Total Bilirubin 0.50 (0.2-1.3) mg/dL AST 39 (17-59) U/L ALT 34 (0-50) U/L Alkaline Phosphatase 49 (38-126) U/L Troponin I < 0.012 (0.000-0.033) ng/mL Serum Total Protein 7.7 (6.3-8.2) g/dL Albumin 4.9 (3.5-5.0) g/dL 03/02/24 Range/Units 16:05 WBC 6.8 (4.23-9.07) x10^3/uL RBC 5.01 (4.63-6.08) x10^6/uL Hgb 15.3 (13.7-17.5) g/dL Hct 44.4 (40.1-51.0) % MCV 88.6 (79.0-92.2) fL MCH 30.5 (25.7-32.2) pg MCHC 34.5 (32.3-36.5) g/dL RDW 12.9 (11.6-14.4) % Plt Count 230 (163-337) x10^3/uL MPV 9.5 (9.4-12.4) fL Gran % 73.9 H (34.0-67.9) % Immature Gran % (Auto) 0.1 (0.001-0.429) % Nucleat RBC Rel Count 0.0 (0.00-0.2) % Eos # (Auto) 0.13 (0.04-0.54) x10^3/uL Immature Gran # (Auto) 0.01 (0.001-0.031) x10^3u/L Absolute Lymphs (auto) 0.90 L (1.32-3.57) x10^3/uL Absolute Monos (auto) 0.70 (0.30-0.82) x10^3/uL Absolute Nucleated RBC 0.00 (0.00-0.012) x10^3u/L Lymphocytes % 13.3 L (21.8-53.1) % Monocytes % 10.4 (5.3-12.2) % Eosinophils % 1.9 (0.8-7.0) % Basophils % 0.4 (0.2-1.2) % Absolute Granulocytes 4.98 (1.78-5.38) x10^3/uL Basophils # 0.03 (0.01-0.08) x10^3/uL D-Dimer (0.0-0.50) mg/L Sodium (135-145) mmol/L Potassium (3.5-5.1) mmol/L Chloride (98-107) mmol/L Carbon Dioxide (22-30) mmol/L Anion Gap (5-15) MEQ/L BUN (9-20) mg/dL Creatinine (0.66-1.25) mg/dL Estimated GFR ML/MIN Glucose (74-106) mg/dL Calcium (8.4-10.2) mg/dL Magnesium (1.6-2.3) mg/dL Total Bilirubin (0.2-1.3) mg/dL AST (17-59) U/L ALT (0-50) U/L Alkaline Phosphatase (38-126) U/L Troponin I (0.000-0.033) ng/mL Serum Total Protein (6.3-8.2) g/dL Albumin (3.5-5.0) g/dL - Progress Progress: improved, re-examined Air Movement: good Progress Note: 03/02/24 16:27 My medical decision making and the assignment of moderate complexity to this patient's medical issue today is based on review of the patient's past medical history, review the patient's medication list, review of the patient's drug allergy list, history present illness and physical findings on examination. The workup in this patient includes CBC, CMP, magnesium level, twelve-lead EKG, D-dimer level and troponin level. We will provide the patient with 4 baby aspirin. Differential diagnosis includes but is not limited to persistent COVID-19 infection, pneumonia, myocardial infarction, electrolyte abnormalities, arrhythmia, pulmonary embolus 03/02/24 17:27 I interpreted the patient's laboratory data results, based on the laboratory data results, there are no acute, emergent medical issues. I interpreted the preliminary chest x-ray report on this patient. It appears to me that the patient has an infiltrate in the left perihilar region. Will place him on antibiotics. Blood Culture(s) Obtained: No Antibiotics given: Yes Counseled pt/family regarding: lab results, diagnosis, rad results Medical Desision Making - Diagnostic Testing Diagnostic test were ordered, analyzed, and reviewed by me: Yes Radiological Interpretation: Interpreted by me, Teleradiologist Report - Risk of complications The pt has a mod risk of morbidity or mortality based on: Need for prescription drug management - Departure Departure Disposition: Home Clinical Impression: Left pulmonary infiltrate on CXR, Fever Condition: Stable Critical Care Time: No Referrals: [facility]OSPITAL,'S [Primary Care Provider] - Follow up/PCP as directed Additional Instructions: Alternate Tylenol and ibuprofen every 4 hours while awake to control pain and fever. Take your antibiotics and other medications as prescribed. Call your primary care provider tomorrow, 03/03/2024, to make arrangements for follow-up appointment for further evaluation and management. Prescriptions: Cefdinir 300 mg PO BID #[id number] cap
[2024-03-02 15:54] VITALS: TEMP 100.4
[2024-03-02] MEDS ORDERED: BABY ASPIRIN 81 MG CHEW ONE (16:11)
[2024-03-02] MEDS ORDERED: TYLENOL 325 MG ONE (16:13)
[2024-03-02] MEDS ORDERED: MOTRIN 600 MG ONE (16:13)
[2024-03-02 16:19] LABS: Absolute Neutrophil Ct (ANC) 4.98 x10^3/uL (1.78-5.38); BASOPHIL % 0.4 % (0.2-1.2); Basophil (Absolute #) 0.03 x10^3/uL (0.01-0.08); Eosinophil % 1.9 % (0.8-7.0); Eosinophil (Absolute #) 0.13 x10^3/uL (0.04-0.54); Hematocrit 44.4 % (40.1-51.0); Hemoglobin 15.3 g/dL (13.7-17.5); IMMATURE GRAN # 0.01 x10^3u/L (0.001-0.031); IMMATURE GRAN % 0.1 % (0.001-0.429); Lymphocytes % 13.3 % (21.8-53.1); Mean Cell Volume 88.6 fL (79.0-92.2); Mean Corpuscular Hemoglobin 30.5 pg (25.7-32.2); Mean Corpuscular Hgb Concent. 34.5 g/dL (32.3-36.5); Mean Platelet Volume 9.5 fL (9.4-12.4); Monocytes % 10.4 % (5.3-12.2); Neutrophil % 73.9 % (34.0-67.9); Platelet Count 230 x10^3/uL (163-337); Red Blood Count 5.01 x10^6/uL (4.63-6.08); Red Cell Distribution Width 12.9 % (11.6-14.4); White Blood Count 6.8 x10^3/uL (4.23-9.07)
[2024-03-02 16:48] LABS: ALBUMIN 4.9 g/dL (3.5-5.0); ANION GAP 13.4 MEQ/L (5-15); BILIRUBIN,TOTAL 0.5 mg/dL (0.2-1.3); Calcium 9.3 mg/dL (8.4-10.2); Creatinine 1 1.02 mg/dL (0.66-1.25); EST GLOMERULAR FILTRATION RATE 95.3 ML/MIN; Potassium 4.3 mmol/L (3.5-5.1); Total Protein 7.7 g/dL (6.3-8.2)
[2024-03-02] MEDS: MOTRIN 600 MG PO ONE (16:50)
[2024-03-02] MEDS: TYLENOL 325 MG PO ONE (16:50)
[2024-03-02] MEDS: BABY ASPIRIN 81 MG CHEW PO ONE (16:51)
[2024-03-02] MEDS ORDERED: ROCEPHIN 1 GM / 100 ML NaCl 1 GM/100 ML IVPB IV ONE (17:33)
[2024-03-02] MEDS: ROCEPHIN 1 GM / 100 ML NaCl 1 GM/100 ML IVPB IV ONE (17:36)
--- NOTE | 2024-03-02 17:39 | XRAY ---
Indication: Left chest pain. Comparison: September 04, 2021 Portable chest again demonstrates normal heart, lungs, and bony thorax.
[2024-03-02 18:04] VITALS: BP 101/55; PULSE 77; RESP 18; O2SAT 97
== END 2024-03-02 18:25 | disposition home or self-care (01) ==
LOC: ED 15:34
DX: R91.8 Other nonspecific abnormal finding of lung field (principal); R50.9 Fever, unspecified; R07.9 Chest pain, unspecified; R05.9 Cough, unspecified; I10 Essential (primary) hypertension; Z79.899 Other long term (current) drug therapy; Z59.01 Sheltered homelessness
CPT/HCPCS: 36415; 71045; 80053; 83735; 84484; 85025; 85379; 93005; 94760; 99284; 99285; J0696; A9270-GY